=== PATIENT | female | born 1985 | race Caucasian/White ===

== ENCOUNTER 2018-12-06 17:43 | Emergency (ER) | payer MEDICAID ==
[~2018-12-06] VITALS: Ht 149.9 cm; Wt 71.8 kg
[~2018-12-06 17:43] MED LIST: NO HOME MEDS; OMEP20CA4 PO; ONDA4TAB6 PO; PROC-8 PO; SACC250C PO
[2018-12-06] MEDS ORDERED: LIDOcaine 1% w/epiNEPHrine 1:200,000 30ml vial IM ONE (19:20)
[2018-12-06] MEDS ORDERED: acetaminophen 325mg tablet PO ONE (19:20)
[2018-12-06] MEDS ORDERED: ibuprofen tablet 400 MG TABLET PO ONE (19:20)
[2018-12-06] MEDS ORDERED: ACET-2119 PO (19:26)
[2018-12-06] MEDS ORDERED: IBUP-1984 PO (19:26)
[2018-12-06] MEDS ORDERED: SULF1TAB49 PO (19:26)
[2018-12-06 20:15] VITALS: BP 132/84
== END 2018-12-06 20:17 | disposition home or self-care (01) ==
LOC: ER 17:44
DX: L03.011 Cellulitis of right finger (principal); Z56.0 Unemployment, unspecified; Z88.0 Allergy status to penicillin; Z79.2 Long term (current) use of antibiotics; Z79.899 Other long term (current) drug therapy
CPT/HCPCS: 10060; 99283; J3490

== ENCOUNTER 2018-12-24 15:48 | Emergency (ER) | payer MEDICAID ==
[~2018-12-24] VITALS: Ht 149.9 cm; Wt 68.0 kg
[~2018-12-24 15:48] MED LIST changes: +ACET-2119 PO; +SULF1TAB49 PO
[2018-12-24 16:00] VITALS: BP 125/89
[2018-12-24] MEDS ORDERED: HYDR-4383 PO (16:56)
== END 2018-12-24 17:19 | disposition home or self-care (01) ==
LOC: ER 15:49
DX: L03.011 Cellulitis of right finger (principal); Z56.0 Unemployment, unspecified; Z88.0 Allergy status to penicillin
CPT/HCPCS: 10060; 99283

== ENCOUNTER 2018-12-25 18:01 | Emergency (ER) | payer MEDICAID ==
[~2018-12-25] VITALS: Ht 149.9 cm; Wt 68.1 kg
[~2018-12-25 18:01] MED LIST changes: +HYDR-4383 PO
[2018-12-25 18:12] VITALS: BP 105/65
== END 2018-12-25 18:17 | disposition home or self-care (01) ==
LOC: ER 18:01
DX: L03.011 Cellulitis of right finger (principal); Z56.0 Unemployment, unspecified; Z88.0 Allergy status to penicillin
CPT/HCPCS: 99281

== ENCOUNTER 2019-06-22 16:35 | Inpatient (IN) | payer MEDICAID ==
[~2019-06-22] VITALS: Ht 149.9 cm; Wt 52.4 kg
[~2019-06-22 16:35] MED LIST changes: -ACET-2119 PO; -SULF1TAB49 PO
[2019-06-22 17:27] LABS: CLARITY,URINE CLEAR (Clear); COLOR,URINE STRAW (Yellow); GLUCOSE, URINE >=1000 mg/dl (Neg); KETONES,URINE 40 mg/dl (Neg); LEUKOCYTE ESTERASE ,URINE NEGATIVE (Neg); NITRITES, URINE NEGATIVE (Neg); OCCULT BLOOD,URINE NEGATIVE (Neg); PH,URINE 5.5 (4.8-8.0); PROTEIN,URINE NEGATIVE (Neg); UROBILINOGEN,URINE 0.2 E.U/dL (0.2-1.0)
[2019-06-22 17:28] LABS: UA COLLECTION TYPE CLN CATCH MIDSTREAM
[2019-06-22 17:31] LABS: BASOPHILS # (AUTO) 0.1 X10'3 (0-0.2); BASOPHILS % (AUTO) 1.1 % (0-1); EOSINOPHILS # (AUTO) 0.2 X10'3 (0-0.9); EOSINOPHILS % (AUTO) 2.9 % (0-6); HEMATOCRIT 42.9 % (35.0-45.0); HEMOGLOBIN 14.5 g/dl (12.0-16.0); LYMPHOCYTES % (AUTO) 28.2 % (21-51); MEAN CORPUSCULAR HEMOGLOBIN 33.8 PG (27.0-31.0); MEAN CORPUSCULAR HGB CONC 33.8 g/dL (33.0-36.5); MEAN PLATELET VOLUME 8.4 FL (7.4-10.4); MONOCYTES # (AUTO) 0.7 X10'3 (0-0.9); MONOCYTES % (AUTO) 9.5 % (2-12); NEUTROPHILS # (AUTO) 4.2 X10'3 (1.8-7.7); NEUTROPHILS % (AUTO) 58.3 % (42-75); PLATELET COUNT 251 X10'3 (140-440); RED BLOOD COUNT 4.29 X10'6 (4.20-5.60); RED CELL DISTRIBUTION WIDTH 13.5 % (11.5-14.5); WHITE BLOOD COUNT 7.2 X10'3 (4.5-11.0)
[2019-06-22 17:31] LABS: URINE HCG NEGATIVE (NEG)
[2019-06-22 17:39] LABS: SQUAMOUS EPITHELIAL CELL,UR FEW /LPF (FEW)
[2019-06-22 17:42] LABS: ALANINE AMINOTRANSFERASE 31 U/L (12-78); ALBUMIN 3.6 G/DL (3.4-5.0); ALBUMIN/GLOBULIN RATIO 1.1 (1.1-1.5); ALKALINE PHOSPHATASE 95 IU/L (46-116); ANION GAP 12 (8-16); ASPARTATE AMINO TRANSFERASE 14 U/L (10-37); BILIRUBIN,TOTAL 0.8 MG/DL (0.1-1.0); BLOOD UREA NITROGEN 9 MG/DL (7-18); CALCIUM 8.3 MG/DL (8.5-10.1); CHLORIDE 92 MMOL/L (99-107); CREATININE 0.82 MG/DL (0.40-0.90); LIPASE 244 U/L (73-393); POTASSIUM 3.9 MMOL/L (3.5-5.1); SODIUM 128 MMOL/L (135-145); TOTAL CARBON DIOXIDE 24.3 MMOL/L (24-32); eGFR 79 ML/MIN
[2019-06-22 17:43] LABS: RBC,URINE 0-2 /HPF (0-2); WBC,URINE 0-4 /HPF (0-4)
[2019-06-22 17:46] LABS: YEAST FEW /HPF (NEGATIVE)
[2019-06-22 17:47] LABS: BACTERIA,URINE NONE SEEN /HPF (Neg)
[2019-06-22 17:59] LABS: GLUCOSE 783 MG/DL (70-104)
[2019-06-22] MEDS ORDERED: normal saline 1000ML IV soln IVB ONE (18:05)
[2019-06-22] MEDS ORDERED: insulin regular, human 10 units/0.1 ml syringe SQ ONE (18:05)
[2019-06-22] MEDS ORDERED: insulin regular, human 10 units/0.1 ml syringe IV ONE (18:05)
[2019-06-22] MEDS ORDERED: mag hydrox/Alum hydrox/simeth 30ml oral suspension PO PRN (19:45)
[2019-06-22] MEDS ORDERED: acetaminophen 325mg tablet PO PRN (19:45)
[2019-06-22] MEDS ORDERED: ondansetron/PF 4mg/2ml inj IV PRN (19:45)
[2019-06-22] MEDS ORDERED: magnesium hydroxide 30ml (MOM) UD suspension PO PRN (19:45)
[2019-06-22 20:40] VITALS: BP 105/72
[2019-06-22] MEDS ORDERED: insulin glargine (Lantus) pen - multi-dose SQ ONE (21:00)
[2019-06-22] MEDS ORDERED: MESSAGE TO PHARMACY PO ONE (21:05)
[2019-06-22] MEDS ORDERED: dextrose ORAL solution 15 GM/59 ML bottle PO PRN ×2 (21:05)
[2019-06-22] MEDS ORDERED: dextrose 50%-water 50ml dispensing syringe IV PRN ×2 (21:05)
[2019-06-22] MEDS ORDERED: glucagon, human recombinant 1mg kit SUBCUT PRN (21:05)
[2019-06-22] MEDS ORDERED: insulin Lispro (HumaLOG) vial - multi-dose SQ SCH (21:05)
[2019-06-22] MEDS: normal saline 1000ml 1,000 ML IV SCH (23:12)
[2019-06-23 05:14] LABS: BASOPHILS # (AUTO) 0.1 X10'3 (0-0.2); BASOPHILS % (AUTO) 1.1 % (0-1); EOSINOPHILS # (AUTO) 0.5 X10'3 (0-0.9); EOSINOPHILS % (AUTO) 6.1 % (0-6); HEMATOCRIT 42.6 % (35.0-45.0); HEMOGLOBIN 14.9 g/dl (12.0-16.0); LYMPHOCYTES # (AUTO) 2.5 X10'3 (1.1-4.8); LYMPHOCYTES % (AUTO) 32.9 % (21-51); MEAN CORPUSCULAR HEMOGLOBIN 34.2 PG (27.0-31.0); MEAN CORPUSCULAR VOLUME 97.8 FL (78-98); MONOCYTES # (AUTO) 0.6 X10'3 (0-0.9); MONOCYTES % (AUTO) 8.1 % (2-12); NEUTROPHILS # (AUTO) 3.9 X10'3 (1.8-7.7); NEUTROPHILS % (AUTO) 51.8 % (42-75); PLATELET COUNT 260 X10'3 (140-440); RED BLOOD COUNT 4.35 X10'6 (4.20-5.60); RED CELL DISTRIBUTION WIDTH 13.6 % (11.5-14.5); WHITE BLOOD COUNT 7.6 X10'3 (4.5-11.0)
[2019-06-23 05:35] LABS: ALANINE AMINOTRANSFERASE 22 U/L (12-78); ALBUMIN 3.1 G/DL (3.4-5.0); ALKALINE PHOSPHATASE 66 IU/L (46-116); ANION GAP 7 (8-16); ASPARTATE AMINO TRANSFERASE 12 U/L (10-37); BILIRUBIN,TOTAL 0.3 MG/DL (0.1-1.0); BLOOD UREA NITROGEN 11 MG/DL (7-18); CHLORIDE 106 MMOL/L (99-107); CREATININE 0.44 MG/DL (0.40-0.90); GLUCOSE 217 MG/DL (70-104); POTASSIUM 3.6 MMOL/L (3.5-5.1); SODIUM 139 MMOL/L (135-145); TOTAL PROTEIN 6.1 G/DL (6.4-8.2); eGFR > 90 ML/MIN
[2019-06-23] MEDS: normal saline 1000ml 1,000 ML IV SCH (05:42)
--- NOTE | 2019-06-23 06:29 | NUR ---
Problems reprioritized. Patient report given, questions answered & plan of care reviewed with Reese RN.
--- NOTE | 2019-06-23 06:38 | NUR ---
Patient in room [facility]. I have received report from Oli ZARATE and had the opportunity to ask questions and assume patient care.
[2019-06-23 07:32] VITALS: BP 106/79
--- NOTE | 2019-06-23 08:30 | NUR ---
Patient left AMA this morning before medication pass, and never was able to do an assessment
[2019-06-23] MEDS ORDERED: insulin glargine (Lantus) pen - multi-dose SQ SCH (21:00)
== END 2019-06-23 08:40 | disposition left against medical advice (07) | DRG 420 ==
LOC: ER 16:36 → SUR 3N 20:38
PROVIDERS: ADMIT Internal Medicine; ATTEND Family Medicine
DX: E10.65 Type 1 diabetes mellitus with hyperglycemia (principal); F17.210 Nicotine dependence, cigarettes, uncomplicated; F32.9 Major depressive disorder, single episode, unspecified; Z83.3 Family history of diabetes mellitus; Z88.0 Allergy status to penicillin; Z72.89 Other problems related to lifestyle
CPT/HCPCS: 36415; 80053; 81001; 81025; 82948; 83525; 83690; 84681; 85025; 85610; 87081; 96361; 96372; 96374; 99285; G0378; J1815; J7030

== ENCOUNTER 2019-07-05 16:15 | Emergency (ER) | payer MEDICAID ==
[~2019-07-05] VITALS: Ht 124.5 cm; Wt 54.5 kg
[~2019-07-05 16:15] MED LIST changes: -HYDR-4383 PO; -OMEP20CA4 PO; -ONDA4TAB6 PO; -PROC-8 PO; -SACC250C PO
[2019-07-05 16:21] VITALS: BP 99/57
--- NOTE | 2019-07-05 17:10 | NUR ---
PATIENT STATES SHE WAS INPATIENT RECENTLY AND INFORMED THAT MRSA SCREEN WAS POSITIVE. STATES SHE WAS ADVISED TO COME IN FOR TREATMENT.
== END 2019-07-05 18:12 | disposition home or self-care (01) ==
LOC: ER 16:15
DX: Z11.2 Encounter for screening for other bacterial diseases (principal); E11.9 Type 2 diabetes mellitus without complications; F17.200 Nicotine dependence, unspecified, uncomplicated; Z56.0 Unemployment, unspecified; Z88.0 Allergy status to penicillin
CPT/HCPCS: 99281

== ENCOUNTER 2019-09-18 09:15 | Emergency (ER) | payer MEDICAID ==
[~2019-09-18] VITALS: Ht 149.9 cm; Wt 56.4 kg
[2019-09-18 09:16] VITALS: BP 133/86
== END 2019-09-18 11:17 | disposition left against medical advice (07) ==
LOC: ER 09:16
DX: Z00.8 Encounter for other general examination (principal); Z53.21 Procedure and treatment not carried out due to patient leaving prior to being seen by health care provider

== ENCOUNTER 2020-01-23 15:05 | Emergency (ER) | payer MEDICAID ==
[~2020-01-23] VITALS: Ht 175.3 cm; Wt 60.5 kg
[2020-01-23] MEDS ORDERED: ondansetron/PF 4mg/2ml inj IV ONE (16:10)
[2020-01-23] MEDS ORDERED: normal saline 1000ML IV soln IVB ONE (16:10)
[2020-01-23] MEDS ORDERED: proCHLORperazine 10 MG/2 ml inj IV ONE (16:10)
[2020-01-23 16:30] LABS: BASOPHILS % (AUTO) 0.1 % (0-1); EOSINOPHILS % (AUTO) 0.1 % (0-6); HEMATOCRIT 39.4 % (35.0-45.0); HEMOGLOBIN 13.4 g/dl (12.0-16.0); LYMPHOCYTES # (AUTO) 0.2 X10'3 (1.1-4.8); LYMPHOCYTES % (AUTO) 2.5 % (21-51); MEAN CORPUSCULAR HEMOGLOBIN 32.4 PG (27.0-31.0); MEAN CORPUSCULAR VOLUME 95.3 FL (78-98); MEAN PLATELET VOLUME 8.5 FL (7.4-10.4); MONOCYTES # (AUTO) 0.1 X10'3 (0-0.9); MONOCYTES % (AUTO) 1.2 % (2-12); NEUTROPHILS # (AUTO) 5.8 X10'3 (1.8-7.7); NEUTROPHILS % (AUTO) 96.1 % (42-75); PLATELET COUNT 172 X10'3 (140-440); RED BLOOD COUNT 4.14 X10'6 (4.20-5.60); RED CELL DISTRIBUTION WIDTH 13.7 % (11.5-14.5)
[2020-01-23 16:44] LABS: ALANINE AMINOTRANSFERASE 16 U/L (12-78); ALBUMIN/GLOBULIN RATIO 0.8 (1.1-1.5); ALKALINE PHOSPHATASE 90 IU/L (46-116); ANION GAP 14 (8-16); ASPARTATE AMINO TRANSFERASE 16 U/L (10-37); BILIRUBIN,TOTAL 0.7 MG/DL (0.1-1.0); BLOOD UREA NITROGEN 16 MG/DL (7-18); BUN/CREATININE RATIO 19.8 (6.6-38.0); CALCIUM 8.5 MG/DL (8.5-10.1); CHLORIDE 101 MMOL/L (99-107); CREATININE 0.81 MG/DL (0.40-0.90); GLUCOSE 212 MG/DL (70-104); LIPASE 100 U/L (73-393); POTASSIUM 3.4 MMOL/L (3.5-5.1); SODIUM 138 MMOL/L (135-145); TOTAL CARBON DIOXIDE 22.8 MMOL/L (24-32); TOTAL PROTEIN 6.9 G/DL (6.4-8.2); eGFR 80 ML/MIN
[2020-01-23] MEDS ORDERED: potassium Cl 20 mEq SR tablet PO ONE (16:50)
[2020-01-23] MEDS ORDERED: ONDA4TAB6 PO (17:06)
[2020-01-23] MEDS ORDERED: normal saline 1000ml 1,000 ML IV ONE ×2 (18:10→18:45)
[2020-01-23 19:36] VITALS: BP 99/51
== END 2020-01-23 19:41 | disposition home or self-care (01) ==
LOC: ER 15:06
DX: A08.4 Viral intestinal infection, unspecified (principal); R11.2 Nausea with vomiting, unspecified; R19.7 Diarrhea, unspecified; E10.9 Type 1 diabetes mellitus without complications; F32.9 Major depressive disorder, single episode, unspecified; F12.90 Cannabis use, unspecified, uncomplicated; Z56.0 Unemployment, unspecified; Z88.0 Allergy status to penicillin; Z79.899 Other long term (current) drug therapy
CPT/HCPCS: 36415; 80053; 83690; 85025; 96361; 96374; 96375; 99284; J0780; J2405; J7030

== ENCOUNTER 2020-01-26 18:43 | Emergency (ER) | payer MEDICAID ==
[~2020-01-26] VITALS: Ht 149.9 cm; Wt 51.1 kg
[~2020-01-26 18:43] MED LIST changes: +ONDA4TAB6 PO
[2020-01-26] MEDS ORDERED: normal saline 1000ML IV soln IVB ONE (19:00)
[2020-01-26] MEDS ORDERED: ondansetron/PF 4mg/2ml inj IV ONE (19:00)
[2020-01-26 19:20] LABS: BASOPHILS % (AUTO) 0.4 % (0-1); EOSINOPHILS # (AUTO) 0.1 X10'3 (0-0.9); EOSINOPHILS % (AUTO) 0.8 % (0-6); HEMATOCRIT 40.3 % (35.0-45.0); HEMOGLOBIN 13.5 g/dl (12.0-16.0); LYMPHOCYTES # (AUTO) 1.3 X10'3 (1.1-4.8); LYMPHOCYTES % (AUTO) 10.7 % (21-51); MEAN CORPUSCULAR HEMOGLOBIN 32.7 PG (27.0-31.0); MEAN CORPUSCULAR HGB CONC 33.4 g/dL (33.0-36.5); MEAN CORPUSCULAR VOLUME 97.8 FL (78-98); MEAN PLATELET VOLUME 8.5 FL (7.4-10.4); MONOCYTES # (AUTO) 0.7 X10'3 (0-0.9); MONOCYTES % (AUTO) 5.5 % (2-12); NEUTROPHILS # (AUTO) 9.9 X10'3 (1.8-7.7); NEUTROPHILS % (AUTO) 82.6 % (42-75); PLATELET COUNT 198 X10'3 (140-440); RED BLOOD COUNT 4.13 X10'6 (4.20-5.60); RED CELL DISTRIBUTION WIDTH 14.1 % (11.5-14.5); WHITE BLOOD COUNT 11.9 X10'3 (4.5-11.0)
[2020-01-26 19:32] LABS: COLOR,URINE YELLOW (Yellow); GLUCOSE, URINE 100 mg/dl (Neg); KETONES,URINE >=80 mg/dl (Neg); LEUKOCYTE ESTERASE ,URINE NEGATIVE (Neg); NITRITES, URINE NEGATIVE (Neg); OCCULT BLOOD,URINE TRACE-INTACT (Neg); PH,URINE 5.5 (4.8-8.0); PROTEIN,URINE 30 mg/dl (Neg); URINE HCG POSITIVE (NEG); UROBILINOGEN,URINE 0.2 E.U/dL (0.2-1.0)
[2020-01-26] MEDS ORDERED: acetaminophen 325mg tablet PO ONE (19:35)
[2020-01-26 19:38] LABS: ALANINE AMINOTRANSFERASE 14 U/L (12-78); ALBUMIN 2.8 G/DL (3.4-5.0); ALBUMIN/GLOBULIN RATIO 0.6 (1.1-1.5); ALKALINE PHOSPHATASE 66 IU/L (46-116); ANION GAP 19 (8-16); ASPARTATE AMINO TRANSFERASE 16 U/L (10-37); BILIRUBIN,TOTAL 0.5 MG/DL (0.1-1.0); BLOOD UREA NITROGEN 10 MG/DL (7-18); BUN/CREATININE RATIO 13.5 (6.6-38.0); CALCIUM 8.7 MG/DL (8.5-10.1); CHLORIDE 101 MMOL/L (99-107); CREATININE 0.74 MG/DL (0.40-0.90); GLUCOSE 210 MG/DL (70-104); LIPASE 244 U/L (73-393); POTASSIUM 4.3 MMOL/L (3.5-5.1); SODIUM 131 MMOL/L (135-145); TOTAL PROTEIN 7.6 G/DL (6.4-8.2); eGFR 89 ML/MIN
[2020-01-26 19:42] LABS: CLARITY,URINE SLIGHTLY CLOUDY (Clear); UA COLLECTION TYPE CLN CATCH MIDSTREAM
[2020-01-26 19:42] LABS: TOTAL CARBON DIOXIDE 11.1 MMOL/L (24-32)
[2020-01-26 19:44] LABS: BACTERIA,URINE FEW /HPF (Neg); RBC,URINE 0-2 /HPF (0-2); SQUAMOUS EPITHELIAL CELL,UR MODERATE /LPF (FEW); WBC,URINE 0-4 /HPF (0-4)
[2020-01-26] MEDS ORDERED: LIDOcaine Viscous 15ml cup MM STA (19:49)
[2020-01-26 19:53] LABS: URINE AMPHETAMINE SCREEN NEGATIVE (Neg); URINE BARBITUATE SCREEN NEGATIVE (Neg); URINE BENZODIAZEPINES SCREEN NEGATIVE (Neg); URINE CANNABINOID SCREEN POSITIVE (Neg); URINE COCAINE SCREEN NEGATIVE (Neg); URINE METHADONE SCREEN NEGATIVE (Neg); URINE OPIATE SCREEN NEGATIVE (Neg); URINE PHENCYCLIDINE SCREEN NEGATIVE (Neg)
[2020-01-26] MEDS ORDERED: mag hydrox/Alum hydrox/simeth 30ml oral suspension PO ONE ×2 (20:00→23:20)
[2020-01-26] MEDS ORDERED: normal saline 1000ML IV soln IV ONE (20:00)
[2020-01-26] MEDS ORDERED: diphenhydrAMINE 50 mg/ml inj IV ONE (20:15)
[2020-01-26] MEDS ORDERED: metoclopramide 5 mg/ml inj IV ONE (20:15)
[2020-01-26 20:56] LABS: ABG BASE EXCESS -20.3 mmol/L (-2.0-3.0); ABG OXYGEN SATURATION 97.6 % (95-98); ABG PCO2 (T) 16.7 mmHg (35.0-45.0); ABG PH (T) 7.176 (7.350-7.450); ABG PO2 (T) 119.8 mmHg (83-108); ALLEN'S TEST POSITIVE; FCOHb 1.2 % (0.5-1.5); FMetHb 0.2 % (0.3-1.12); FO2Hb 96.2 % (94-100); PATIENT TEMPERATURE 36.8; TOTAL HEMOGLOBIN 12.2 G/dl (12.0-16.0)
--- NOTE | 2020-01-26 22:27 | NUR ---
MD Julio Cesar at bedside performing ultrasonography at this time.
--- NOTE | 2020-01-26 22:30 | NUR ---
Per MD, ultrasonography is promising. HR at 130 with expected movements/ activity.
[2020-01-26] MEDS ORDERED: Insulin Reg/NS 100units/100mL 100 ML IV SCH (22:32)
[2020-01-26] MEDS ORDERED: potassium Cl 20 mEq SR tablet PO PRN ×2 (22:35)
[2020-01-26] MEDS ORDERED: potassium CL 10mEq/100ml bag 100 ML IV PRN ×2 (22:35)
[2020-01-26] MEDS: potassium CL 20mEq in D5-1/2NS 1,000 ML IV PRN (23:08)
--- NOTE | 2020-01-26 23:53 | NUR ---
VU URENA consulted high worker @ [facility] via phone. Pt. to be monitored for now.
[2020-01-27 00:01] LABS: ALBUMIN 2.5 G/DL (3.4-5.0); ANION GAP 20 (8-16); BLOOD UREA NITROGEN 9 MG/DL (7-18); BUN/CREATININE RATIO 13.6 (6.6-38.0); CALCIUM 7.6 MG/DL (8.5-10.1); CHLORIDE 105 MMOL/L (99-107); CREATININE 0.66 MG/DL (0.40-0.90); GLUCOSE 212 MG/DL (70-104); PHOSPHORUS 1.9 MG/DL (2.3-4.5); POTASSIUM 4.4 MMOL/L (3.5-5.1); SODIUM 134 MMOL/L (135-145); eGFR > 90 ML/MIN
[2020-01-27 00:04] LABS: TOTAL CARBON DIOXIDE 8.9 MMOL/L (24-32)
[2020-01-27] MEDS ORDERED: acetaminophen 325mg tablet PO ONE ×2 (03:25→08:20)
[2020-01-27 04:25] LABS: ALBUMIN 2.2 G/DL (3.4-5.0); ANION GAP 13 (8-16); BLOOD UREA NITROGEN 7 MG/DL (7-18); BUN/CREATININE RATIO 10.4 (6.6-38.0); CALCIUM 7.2 MG/DL (8.5-10.1); CHLORIDE 108 MMOL/L (99-107); CREATININE 0.67 MG/DL (0.40-0.90); GLUCOSE 194 MG/DL (70-104); POTASSIUM 3.9 MMOL/L (3.5-5.1); SODIUM 135 MMOL/L (135-145); eGFR > 90 ML/MIN
[2020-01-27 04:28] LABS: PHOSPHORUS 1.1 MG/DL (2.3-4.5); TOTAL CARBON DIOXIDE 14.1 MMOL/L (24-32)
[2020-01-27] MEDS ORDERED: Neutra Phos packet PO PRN (04:35)
[2020-01-27] MEDS ORDERED: sodium phosphate inj. 30 MMOL in dextrose 5%-water 250 ML IV PRN (04:35)
[2020-01-27] MEDS ORDERED: sodium phosphate inj. 15 MMOL in dextrose 5%-water 250 ML IV PRN (04:35)
[2020-01-27] MEDS: potassium CL 20mEq in D5-1/2NS 1,000 ML IV PRN (05:25)
[2020-01-27] MEDS ORDERED: mag hydrox/Alum hydrox/simeth 30ml oral suspension PO ONE (05:40)
[2020-01-27 07:17] VITALS: BP 101/61
[2020-01-27] MEDS ORDERED: K and/or MAG REPLACEMENT MC SCH (08:00)
[2020-01-27 09:02] LABS: ALANINE AMINOTRANSFERASE 13 U/L (12-78); ALBUMIN 2.3 G/DL (3.4-5.0); ALBUMIN/GLOBULIN RATIO 0.6 (1.1-1.5); ALKALINE PHOSPHATASE 59 IU/L (46-116); ANION GAP 10 (8-16); ASPARTATE AMINO TRANSFERASE 15 U/L (10-37); BILIRUBIN,TOTAL 0.3 MG/DL (0.1-1.0); BLOOD UREA NITROGEN 7 MG/DL (7-18); BUN/CREATININE RATIO 11.1 (6.6-38.0); CALCIUM 7.5 MG/DL (8.5-10.1); CHLORIDE 107 MMOL/L (99-107); CREATININE 0.63 MG/DL (0.40-0.90); GLUCOSE 183 MG/DL (70-104); PHOSPHORUS 2.1 MG/DL (2.3-4.5); POTASSIUM 3.7 MMOL/L (3.5-5.1); SODIUM 135 MMOL/L (135-145); TOTAL CARBON DIOXIDE 17.7 MMOL/L (24-32); TOTAL PROTEIN 6.1 G/DL (6.4-8.2); eGFR > 90 ML/MIN
[2020-01-27] MEDS ORDERED: FAMO-128 PO (09:29)
[2020-01-27] MEDS ORDERED: ONDA4TAB6 PO (09:29)
[2020-01-27] MEDS ORDERED: PROM25SU46 RC (09:29)
[2020-01-27] MEDS ORDERED: famotidine/PF 10 mg/ml inj IV ONE (09:30)
[2020-01-27] MEDS ORDERED: ondansetron/PF 4mg/2ml inj IV ONE (09:30)
== END 2020-01-27 09:47 | disposition home or self-care (01) ==
LOC: ER 18:43
DX: O24.419 Gestational diabetes mellitus in pregnancy, unspecified control (principal); O21.8 Other vomiting complicating pregnancy; O26.892 Other specified pregnancy related conditions, second trimester; E86.0 Dehydration; R19.7 Diarrhea, unspecified; F12.90 Cannabis use, unspecified, uncomplicated; F32.9 Major depressive disorder, single episode, unspecified; Z3A.24 24 weeks gestation of pregnancy; Z56.0 Unemployment, unspecified; Z88.0 Allergy status to penicillin
CPT/HCPCS: 36415; 36600; 80048; 80053; 80305; 81001; 81025; 82803; 82948; 83605; 83690; 84100; 85018; 85025; 96361; 96365; 96366; 96375; 96376; 99285; J1200; J2405; J2765; J3480; J3490; J7030; J7060; 99284

== ENCOUNTER 2020-06-19 08:34 | Emergency (ER) | payer MEDICAID ==
[~2020-06-19] VITALS: Ht 149.9 cm; Wt 47.7 kg
[~2020-06-19 08:34] MED LIST changes: +FAMO-128 PO; +PROM25SU46 RC
[2020-06-19 09:08] LABS: CLARITY,URINE SLIGHTLY CLOUDY (Clear); COLOR,URINE STRAW (Yellow); GLUCOSE, URINE >=1000 mg/dl (Neg); KETONES,URINE >=80 mg/dl (Neg); LEUKOCYTE ESTERASE ,URINE NEGATIVE (Neg); NITRITES, URINE NEGATIVE (Neg); OCCULT BLOOD,URINE LARGE (Neg); PH,URINE 5.5 (4.8-8.0); PROTEIN,URINE NEGATIVE (Neg); UA COLLECTION TYPE CLN CATCH MIDSTREAM; URINE HCG NEGATIVE (NEG); UROBILINOGEN,URINE 0.2 E.U/dL (0.2-1.0)
[2020-06-19 09:09] LABS: BASOPHILS % (AUTO) 0.3 % (0-1); EOSINOPHILS % (AUTO) 0.1 % (0-6); HEMATOCRIT 47.2 % (35.0-45.0); LYMPHOCYTES # (AUTO) 1.7 X10'3 (1.1-4.8); LYMPHOCYTES % (AUTO) 13.5 % (21-51); MEAN CORPUSCULAR HEMOGLOBIN 32.1 PG (27.0-31.0); MEAN CORPUSCULAR VOLUME 94.4 FL (78-98); MEAN PLATELET VOLUME 8.1 FL (7.4-10.4); MONOCYTES # (AUTO) 0.6 X10'3 (0-0.9); MONOCYTES % (AUTO) 5.1 % (2-12); NEUTROPHILS # (AUTO) 10.1 X10'3 (1.8-7.7); PLATELET COUNT 338 X10'3 (140-440); WHITE BLOOD COUNT 12.5 X10'3 (4.5-11.0)
[2020-06-19 09:15] LABS: BACTERIA,URINE FEW /HPF (Neg); RBC,URINE 0-2 /HPF (0-2); SQUAMOUS EPITHELIAL CELL,UR MODERATE /LPF (FEW); WBC,URINE 0-4 /HPF (0-4)
[2020-06-19] MEDS ORDERED: normal saline 1000ml 1,000 ML IV ONE ×3 (09:15→11:35)
[2020-06-19 09:22] LABS: ALANINE AMINOTRANSFERASE 30 U/L (12-78); ALBUMIN 4.2 G/DL (3.4-5.0); ALBUMIN/GLOBULIN RATIO 0.9 (1.1-1.5); ALKALINE PHOSPHATASE 84 IU/L (46-116); ANION GAP 17 (8-16); ASPARTATE AMINO TRANSFERASE 28 U/L (10-37); BILIRUBIN,TOTAL 1.9 MG/DL (0.1-1.0); BLOOD UREA NITROGEN 26 MG/DL (7-18); BUN/CREATININE RATIO 20.8 (6.6-38.0); CALCIUM 8.7 MG/DL (8.5-10.1); CHLORIDE 87 MMOL/L (99-107); CREATININE 1.25 MG/DL (0.40-0.90); LIPASE 183 U/L (73-393); POTASSIUM 3.7 MMOL/L (3.5-5.1); SODIUM 129 MMOL/L (135-145); TOTAL CARBON DIOXIDE 24.6 MMOL/L (24-32); TOTAL PROTEIN 8.7 G/DL (6.4-8.2); eGFR 48 ML/MIN
[2020-06-19 09:27] LABS: GLUCOSE 524 MG/DL (70-104)
[2020-06-19] MEDS ORDERED: ondansetron/PF 4mg/2ml inj IV ONE ×2 (10:10→11:45)
--- NOTE | 2020-06-19 10:42 | NUR ---
PT C/O NAUSEA ,MEDICATED WITH 4 MG ZOFRAN PER MD ORDERS,PT SECOND BAG OF N.S INFUSING PER MD ORDERS,PRIMARY NURSE MARIO BUSY WITH OTHER PT.
[2020-06-19 12:09] LABS: URINE AMPHETAMINE SCREEN NEGATIVE (Neg); URINE BARBITUATE SCREEN NEGATIVE (Neg); URINE BENZODIAZEPINES SCREEN NEGATIVE (Neg); URINE CANNABINOID SCREEN POSITIVE (Neg); URINE COCAINE SCREEN NEGATIVE (Neg); URINE METHADONE SCREEN NEGATIVE (Neg); URINE OPIATE SCREEN NEGATIVE (Neg); URINE PHENCYCLIDINE SCREEN NEGATIVE (Neg)
[2020-06-19] MEDS ORDERED: PROM25TA14 PO (12:36)
[2020-06-19 12:59] VITALS: BP 139/90
== END 2020-06-19 12:58 | disposition home or self-care (01) ==
LOC: ER 08:35
DX: E11.65 Type 2 diabetes mellitus with hyperglycemia (principal); R11.2 Nausea with vomiting, unspecified; R10.84 Generalized abdominal pain; R50.9 Fever, unspecified; F32.9 Major depressive disorder, single episode, unspecified; F17.200 Nicotine dependence, unspecified, uncomplicated; F12.90 Cannabis use, unspecified, uncomplicated; Z72.89 Other problems related to lifestyle; Z56.0 Unemployment, unspecified; Z88.0 Allergy status to penicillin; Z79.899 Other long term (current) drug therapy
CPT/HCPCS: 36415; 76700; 80053; 80305; 81001; 81025; 82009; 82948; 83605; 83690; 85025; 93005; 96361; 96374; 96376; 99285; J2405; J7030

== ENCOUNTER 2020-06-25 15:05 | Emergency (ER) | payer MEDICAID ==
[~2020-06-25] VITALS: Ht 149.9 cm; Wt 53.0 kg
[~2020-06-25 15:05] MED LIST changes: +PROM25TA14 PO
[2020-06-25] MEDS ORDERED: normal saline 1000ML IV soln IVB ONE (15:50)
[2020-06-25 16:06] LABS: BASOPHILS % (AUTO) 0.5 % (0-1); EOSINOPHILS % (AUTO) 0.5 % (0-6); HEMOGLOBIN 16.2 g/dl (12.0-16.0); LYMPHOCYTES # (AUTO) 2.7 X10'3 (1.1-4.8); LYMPHOCYTES % (AUTO) 27.8 % (21-51); MEAN CORPUSCULAR HEMOGLOBIN 31.5 PG (27.0-31.0); MEAN CORPUSCULAR HGB CONC 33.6 g/dL (33.0-36.5); MEAN CORPUSCULAR VOLUME 93.7 FL (78-98); MEAN PLATELET VOLUME 8.1 FL (7.4-10.4); MONOCYTES # (AUTO) 0.5 X10'3 (0-0.9); MONOCYTES % (AUTO) 5.6 % (2-12); NEUTROPHILS # (AUTO) 6.3 X10'3 (1.8-7.7); NEUTROPHILS % (AUTO) 65.6 % (42-75); PLATELET COUNT 405 X10'3 (140-440); RED BLOOD COUNT 5.12 X10'6 (4.20-5.60); RED CELL DISTRIBUTION WIDTH 14.1 % (11.5-14.5); WHITE BLOOD COUNT 9.6 X10'3 (4.5-11.0)
[2020-06-25 16:22] LABS: ALANINE AMINOTRANSFERASE 29 U/L (12-78); ALBUMIN 4.2 G/DL (3.4-5.0); ALBUMIN/GLOBULIN RATIO 0.9 (1.1-1.5); ALKALINE PHOSPHATASE 84 IU/L (46-116); ANION GAP 27 (8-16); ASPARTATE AMINO TRANSFERASE 20 U/L (10-37); BILIRUBIN,TOTAL 1.2 MG/DL (0.1-1.0); BLOOD UREA NITROGEN 19 MG/DL (7-18); BUN/CREATININE RATIO 18.6 (6.6-38.0); CALCIUM 8.6 MG/DL (8.5-10.1); CHLORIDE 91 MMOL/L (99-107); CREATININE 1.02 MG/DL (0.40-0.90); GLUCOSE 375 MG/DL (70-104); LIPASE 263 U/L (73-393); POTASSIUM 4.2 MMOL/L (3.5-5.1); SODIUM 132 MMOL/L (135-145); TOTAL PROTEIN 8.7 G/DL (6.4-8.2); eGFR 61 ML/MIN
[2020-06-25 16:25] LABS: TOTAL CARBON DIOXIDE 14.3 MMOL/L (24-32)
[2020-06-25] MEDS ORDERED: proCHLORperazine 10 MG/2 ml inj IV ONE (16:40)
[2020-06-25] MEDS ORDERED: LORazepam 2 mg/ml vial IV ONE (16:40)
[2020-06-25 16:50] LABS: URINE HCG NEGATIVE (NEG)
[2020-06-25 16:52] LABS: COLOR,URINE YELLOW (Yellow); GLUCOSE, URINE 500 mg/dl (Neg); KETONES,URINE >=80 mg/dl (Neg); LEUKOCYTE ESTERASE ,URINE NEGATIVE (Neg); NITRITES, URINE NEGATIVE (Neg); OCCULT BLOOD,URINE NEGATIVE (Neg); PROTEIN,URINE TRACE mg/dl (Neg); UROBILINOGEN,URINE 0.2 E.U/dL (0.2-1.0)
[2020-06-25] MEDS ORDERED: PROC25SU31 RC (16:58)
[2020-06-25 17:10] LABS: CLARITY,URINE SLIGHTLY CLOUDY (Clear); UA COLLECTION TYPE CLN CATCH MIDSTREAM
[2020-06-25 17:11] LABS: BACTERIA,URINE NONE SEEN /HPF (Neg); HYALINE CASTS 0-3 /LPF (NEGATIVE); MUCUS STRANDS FEW /LPF (Neg); RBC,URINE NONE SEEN /HPF (0-2); SQUAMOUS EPITHELIAL CELL,UR MANY /LPF (FEW); WBC,URINE 0-4 /HPF (0-4)
[2020-06-25 18:24] VITALS: BP 99/69
== END 2020-06-25 18:20 | disposition home or self-care (01) ==
LOC: ER 15:06
DX: R11.15 Cyclical vomiting syndrome unrelated to migraine (principal); F12.188 Cannabis abuse with other cannabis-induced disorder; E86.0 Dehydration; R10.13 Epigastric pain; R11.2 Nausea with vomiting, unspecified; E11.9 Type 2 diabetes mellitus without complications; Z72.89 Other problems related to lifestyle; Z88.0 Allergy status to penicillin; Z79.899 Other long term (current) drug therapy
CPT/HCPCS: 36415; 80053; 81001; 81025; 82948; 83690; 85025; 96361; 96374; 96375; 99284; J0780; J2060; J7030

== ENCOUNTER 2020-09-14 00:29 | Emergency (ER) | payer MEDICAID ==
[~2020-09-14] VITALS: Ht 149.9 cm; Wt 52.0 kg
[~2020-09-14 00:29] MED LIST changes: -PROM25SU46 RC; +PROM25SU9 RC
[2020-09-14 00:32] VITALS: BP 128/86
[2020-09-14] MEDS ORDERED: acetaminophen 325mg tablet PO ONE (01:40)
[2020-09-14 02:15] LABS: ALANINE AMINOTRANSFERASE 31 U/L (12-78); ALBUMIN 3.4 G/DL (3.4-5.0); ALKALINE PHOSPHATASE 85 IU/L (46-116); ANION GAP 6 (8-16); ASPARTATE AMINO TRANSFERASE 19 U/L (10-37); BILIRUBIN,TOTAL 0.3 MG/DL (0.1-1.0); BLOOD UREA NITROGEN 20 MG/DL (7-18); CALCIUM 9.2 MG/DL (8.5-10.1); CHLORIDE 98 MMOL/L (99-107); GLUCOSE 152 MG/DL (70-104); POTASSIUM 3.2 MMOL/L (3.5-5.1); SODIUM 131 MMOL/L (135-145); TOTAL CARBON DIOXIDE 26.6 MMOL/L (24-32); TOTAL PROTEIN 6.9 G/DL (6.4-8.2); eGFR 81 ML/MIN
[2020-09-14 02:21] LABS: BETA HCG,QUANTITATIVE 281 mIU/ml
[2020-09-14 02:24] LABS: BASOPHILS # (AUTO) 0.1 X10'3 (0-0.2); BASOPHILS % (AUTO) 0.7 % (0-1); EOSINOPHILS # (AUTO) 0.4 X10'3 (0-0.9); EOSINOPHILS % (AUTO) 3.4 % (0-6); HEMATOCRIT 43.8 % (35.0-45.0); HEMOGLOBIN 15.1 g/dl (12.0-16.0); LYMPHOCYTES # (AUTO) 3.9 X10'3 (1.1-4.8); LYMPHOCYTES % (AUTO) 33.9 % (21-51); MEAN CORPUSCULAR HEMOGLOBIN 31.7 PG (27.0-31.0); MEAN CORPUSCULAR HGB CONC 34.5 g/dL (33.0-36.5); MEAN CORPUSCULAR VOLUME 91.8 FL (78-98); MEAN PLATELET VOLUME 8.7 FL (7.4-10.4); MONOCYTES # (AUTO) 0.9 X10'3 (0-0.9); MONOCYTES % (AUTO) 7.7 % (2-12); NEUTROPHILS # (AUTO) 6.3 X10'3 (1.8-7.7); NEUTROPHILS % (AUTO) 54.3 % (42-75); PLATELET COUNT 281 X10'3 (140-440); RED BLOOD COUNT 4.77 X10'6 (4.20-5.60); RED CELL DISTRIBUTION WIDTH 12.5 % (11.5-14.5); WHITE BLOOD COUNT 11.5 X10'3 (4.5-11.0)
== END 2020-09-14 03:38 | disposition home or self-care (01) ==
LOC: ER 00:30
DX: O20.0 Threatened abortion (principal); R10.84 Generalized abdominal pain; N93.9 Abnormal uterine and vaginal bleeding, unspecified; R11.0 Nausea; E11.9 Type 2 diabetes mellitus without complications; F32.9 Major depressive disorder, single episode, unspecified; F12.90 Cannabis use, unspecified, uncomplicated; Z72.89 Other problems related to lifestyle; Z56.0 Unemployment, unspecified; Z88.0 Allergy status to penicillin; Z79.899 Other long term (current) drug therapy
CPT/HCPCS: 36415; 76801; 80053; 84702; 85025; 93976; 99284

== ENCOUNTER 2021-02-15 20:26 | Emergency (ER) | payer MEDICAID ==
[~2021-02-15] VITALS: Ht 149.9 cm; Wt 51.0 kg
[2021-02-15 21:32] LABS: URINE HCG NEGATIVE (NEG)
[2021-02-15 21:56] LABS: CLARITY,URINE CLEAR (Clear); COLOR,URINE YELLOW (Yellow); GLUCOSE, URINE 250 mg/dl (Neg); KETONES,URINE >=80 mg/dl (Neg); LEUKOCYTE ESTERASE ,URINE NEGATIVE (Neg); NITRITES, URINE NEGATIVE (Neg); OCCULT BLOOD,URINE TRACE-INTACT (Neg); PH,URINE 5.5 (4.8-8.0); PROTEIN,URINE 100 mg/dl (Neg); UROBILINOGEN,URINE 0.2 E.U/dL (0.2-1.0)
[2021-02-15 21:58] LABS: UA COLLECTION TYPE CLN CATCH MIDSTREAM
[2021-02-15] MEDS ORDERED: normal saline 1000ML IV soln IVB ONE ×2 (22:00→22:50)
[2021-02-15] MEDS ORDERED: famotidine/PF 10 mg/ml inj IV ONE (22:00)
[2021-02-15] MEDS ORDERED: pantoprazole 40 MG vial IV ONE (22:00)
[2021-02-15 22:09] LABS: BACTERIA,URINE FEW /HPF (Neg); MUCUS STRANDS MODERATE /LPF (Neg); RBC,URINE 0-2 /HPF (0-2); SQUAMOUS EPITHELIAL CELL,UR MODERATE /LPF (FEW); WBC,URINE 0-4 /HPF (0-4)
[2021-02-15 22:22] LABS: BASOPHILS % (AUTO) 0.2 % (0-1); EOSINOPHILS % (AUTO) 0.2 % (0-6); HEMATOCRIT 48.3 % (35.0-45.0); HEMOGLOBIN 16.1 g/dl (12.0-16.0); LYMPHOCYTES # (AUTO) 0.9 X10'3 (1.1-4.8); LYMPHOCYTES % (AUTO) 9.2 % (21-51); MEAN CORPUSCULAR HEMOGLOBIN 32.9 PG (27.0-31.0); MEAN CORPUSCULAR HGB CONC 33.3 g/dL (33.0-36.5); MEAN CORPUSCULAR VOLUME 98.6 FL (78-98); MEAN PLATELET VOLUME 8.3 FL (7.4-10.4); MONOCYTES # (AUTO) 0.2 X10'3 (0-0.9); MONOCYTES % (AUTO) 2.6 % (2-12); NEUTROPHILS # (AUTO) 8.2 X10'3 (1.8-7.7); NEUTROPHILS % (AUTO) 87.8 % (42-75); PLATELET COUNT 341 X10'3 (140-440); RED CELL DISTRIBUTION WIDTH 13.2 % (11.5-14.5); WHITE BLOOD COUNT 9.3 X10'3 (4.5-11.0)
[2021-02-15 22:34] LABS: ALANINE AMINOTRANSFERASE 43 U/L (12-78); ALBUMIN 4.4 G/DL (3.4-5.0); ALBUMIN/GLOBULIN RATIO 1.1 (1.1-1.5); ALKALINE PHOSPHATASE 90 IU/L (46-116); ANION GAP 23 (8-16); ASPARTATE AMINO TRANSFERASE 37 U/L (10-37); BILIRUBIN,TOTAL 0.7 MG/DL (0.1-1.0); BLOOD UREA NITROGEN 22 MG/DL (7-18); BUN/CREATININE RATIO 23.2 (6.6-38.0); CALCIUM 9.3 MG/DL (8.5-10.1); CHLORIDE 99 MMOL/L (99-107); CREATININE 0.95 MG/DL (0.40-0.90); GLUCOSE 348 MG/DL (70-104); LIPASE 58 U/L (73-393); POTASSIUM 3.9 MMOL/L (3.5-5.1); SODIUM 141 MMOL/L (135-145); TOTAL PROTEIN 8.4 G/DL (6.4-8.2); eGFR 66 ML/MIN
[2021-02-15 22:41] LABS: URINE AMPHETAMINE SCREEN NEGATIVE (Neg); URINE BARBITUATE SCREEN NEGATIVE (Neg); URINE BENZODIAZEPINES SCREEN NEGATIVE (Neg); URINE CANNABINOID SCREEN POSITIVE (Neg); URINE COCAINE SCREEN NEGATIVE (Neg); URINE METHADONE SCREEN NEGATIVE (Neg); URINE OPIATE SCREEN NEGATIVE (Neg); URINE PHENCYCLIDINE SCREEN NEGATIVE (Neg)
[2021-02-15] MEDS ORDERED: haloperidol lactate 5mg/ml inj IM ONE (22:50)
[2021-02-15 23:41] LABS: ABG BASE EXCESS -15.8 mmol/L (-2.0-2.0); ABG HCO3 10.1 mmol/L (22.0-26.0); ABG OXYGEN SATURATION 96.9 % (94-97); ABG PCO2 (T) 25.1 mmHg (32.0-45.0); ABG PO2 (T) 104.3 mmHg (75.0-100.0); ALLEN'S TEST POSITIVE; FCOHb 1.3 % (0.0-3.9); FMetHb 0.2 % (0.0-1.5); FO2Hb 95.4 % (94-97); PATIENT TEMPERATURE 36.9; RESPIRATORY RATE 16 b/min; TOTAL HEMOGLOBIN 14.7 G/dl (12.0-16.0)
[2021-02-15] MEDS ORDERED: potassium CL 20mEq in D5-1/2NS 1,000 ML IV PRN (23:45)
[2021-02-15] MEDS ORDERED: sodium phosphate inj. 30 MMOL in dextrose 5%-water 250 ML IV PRN (23:45)
[2021-02-15] MEDS ORDERED: sodium phosphate inj. 15 MMOL in dextrose 5%-water 250 ML IV PRN (23:45)
[2021-02-15] MEDS ORDERED: potassium Cl 40MEQ/1/2NS 520ml 520 ML IV PRN ×2 (23:45)
[2021-02-15] MEDS ORDERED: sodium bicarbonate (8.4%) inj. 100 MEQ in dextrose 5% water 500ml 500 ML IV PRN (23:45)
[2021-02-15] MEDS ORDERED: potassium Cl 20 mEq SR tablet PO PRN ×2 (23:45)
[2021-02-15] MEDS ORDERED: insulin regular, human U-100 3ml vial - multi-dose IV PRN (23:45)
[2021-02-15] MEDS ORDERED: Insulin Reg/NS 100units/100mL 100 ML IV SCH (23:45)
[2021-02-15] MEDS ORDERED: sodium bicarbonate (8.4%) inj. 50 MEQ in dextrose 5% water 500ml 250 ML IV PRN (23:45)
[2021-02-15] MEDS ORDERED: Neutra Phos packet PO PRN (23:45)
[2021-02-15] MEDS ORDERED: DEXTROSE 5% IV PRN (23:52)
[2021-02-15] MEDS ORDERED: SODIUM BICARBONATE IV PRN (23:52)
[2021-02-15] MEDS ORDERED: WATER IV PRN (23:52)
[2021-02-15 23:57] LABS: PHOSPHORUS 4.9 MG/DL (2.3-4.5)
[2021-02-16] MEDS: normal saline 1000ml 1,000 ML IV SCH ×2 (01:42→03:45)
[2021-02-16] MEDS ORDERED: DEXTROSE 5% IV PRN (01:50)
[2021-02-16] MEDS ORDERED: sodium phosphate inj. 30 MMOL in dextrose 5%-water 250 ML IV PRN (01:50)
[2021-02-16] MEDS ORDERED: acetaminophen 325mg tablet PO PRN ×2 (01:50)
[2021-02-16] MEDS ORDERED: mag hydrox/Alum hydrox/simeth 30ml oral suspension PO PRN (01:50)
[2021-02-16] MEDS ORDERED: normal saline 1000ml 1,000 ML IV SCH ×2 (01:50)
[2021-02-16] MEDS ORDERED: morphine 2 MG/ML inj. syringe IV PRN ×2 (01:50)
[2021-02-16] MEDS ORDERED: potassium Cl 20 mEq SR tablet PO PRN ×2 (01:50)
[2021-02-16] MEDS ORDERED: ondansetron/PF 4mg/2ml inj IV PRN (01:50)
[2021-02-16] MEDS ORDERED: WATER IV PRN (01:50)
[2021-02-16] MEDS ORDERED: HYDROcodone/acetaminophen 10/325mg tab PO PRN (01:50)
[2021-02-16] MEDS ORDERED: potassium CL 20mEq in D5-1/2NS 1,000 ML IV PRN (01:50)
[2021-02-16] MEDS ORDERED: insulin regular, human U-100 3ml vial - multi-dose IV PRN (01:50)
[2021-02-16] MEDS ORDERED: HYDROcodone/acetaminophen 5mg/325mg tablet PO PRN (01:50)
[2021-02-16] MEDS ORDERED: magnesium hydroxide 30ml (MOM) UD suspension PO PRN (01:50)
[2021-02-16] MEDS ORDERED: Neutra Phos packet PO PRN (01:50)
[2021-02-16] MEDS ORDERED: sodium phosphate inj. 15 MMOL in dextrose 5%-water 250 ML IV PRN (01:50)
[2021-02-16] MEDS ORDERED: sodium bicarbonate (8.4%) inj. 100 MEQ in dextrose 5% water 500ml 500 ML IV PRN (01:50)
[2021-02-16] MEDS ORDERED: potassium Cl 40MEQ/1/2NS 520ml 520 ML IV PRN ×2 (01:50)
[2021-02-16] MEDS ORDERED: Insulin Reg/NS 100units/100mL 100 ML IV SCH (01:50)
[2021-02-16] MEDS ORDERED: SODIUM BICARBONATE IV PRN (01:50)
--- NOTE | 2021-02-16 02:19 | NUR ---
REC'D REPORT FOR TESSA ARNOLD - ASSUMING CARE. PT ON INSULIN DRIP. FLUID BOLUS HAS COMPLETED.
[2021-02-16] MEDS ORDERED: INSU100I31 SQ (02:42)
[2021-02-16] MEDS ORDERED: INSU100I39 SQ (02:42)
--- NOTE | 2021-02-16 03:15 | NUR ---
PT RESTING. AMBULATORY TO RESTROOM EARLIER AND BACK TO BED.
[2021-02-16] MEDS ORDERED: dextrose 5%-1/2 normal saline 1,000 ML IV SCH (03:20)
[2021-02-16 03:36] LABS: ALBUMIN 3.4 G/DL (3.4-5.0); ANION GAP 19 (8-16); BLOOD UREA NITROGEN 16 MG/DL (7-18); BUN/CREATININE RATIO 21.9 (6.6-38.0); CALCIUM 7.5 MG/DL (8.5-10.1); CHLORIDE 111 MMOL/L (99-107); CREATININE 0.73 MG/DL (0.40-0.90); GLUCOSE 229 MG/DL (70-104); PHOSPHORUS 2.5 MG/DL (2.3-4.5); POTASSIUM 3.6 MMOL/L (3.5-5.1); SODIUM 144 MMOL/L (135-145); eGFR 90 ML/MIN
[2021-02-16 03:38] LABS: TOTAL CARBON DIOXIDE 14.5 MMOL/L (24-32)
--- NOTE | 2021-02-16 04:23 | NUR ---
PT RESTING ON GURNEY. NO DISTRESS. NO NEEDS AT THIS TIME.
--- NOTE | 2021-02-16 04:54 | NUR ---
PT RESTING. SHE REMAINS ON INSULIN DRIP AT 5 PER HOUR WITH D5 1/2NS WITH 20K AT 150/HR.
--- NOTE | 2021-02-16 05:06 | NUR ---
HOSPITALIST AT BEDSIDE
[2021-02-16] MEDS ORDERED: K and/or MAG REPLACEMENT MC SCH ×2 (08:00)
[2021-02-16 08:22] LABS: ALBUMIN 3.5 G/DL (3.4-5.0); ANION GAP 13 (8-16); BLOOD UREA NITROGEN 14 MG/DL (7-18); BUN/CREATININE RATIO 19.7 (6.6-38.0); CALCIUM 7.5 MG/DL (8.5-10.1); CHLORIDE 110 MMOL/L (99-107); CREATININE 0.71 MG/DL (0.40-0.90); GLUCOSE 140 MG/DL (70-104); POTASSIUM 3.4 MMOL/L (3.5-5.1); SODIUM 145 MMOL/L (135-145); TOTAL CARBON DIOXIDE 22.4 MMOL/L (24-32); eGFR > 90 ML/MIN
[2021-02-16 08:41] LABS: PHOSPHORUS 1.5 MG/DL (2.3-4.5)
[2021-02-16 10:33] VITALS: BP 104/73
--- NOTE | 2021-02-16 11:47 | NUR ---
PT FEELS MUCH BETTER, REPORTS WANTING TO GO HOME. HOSPITALIST NIGEL PG'ED X 2.
--- NOTE | 2021-02-16 12:49 | NUR ---
PATIENT CHOOSES TO LEAVE AMA AND STATES THAT SHE IS AWARE OF THE RISKS SHE IS TAKING BY LEAVING. IV X 2 REMOVED AND PATIENT DEPARTED AMBULATORY IN GOOD CONDITION. MESSAGE TO DR. MANNING TO INFORM OF AMA DEPARTURE. PAGER ID: [phone] MESSAGE: PATIENT IN ER BED #14, JENNIFER LEFT AMA. THANK YOU. IF YOU HAVE QUESTIONS, CALL TESSA BAKER [phone]
== END 2021-02-16 12:54 | disposition left against medical advice (07) ==
LOC: ER 20:26 → ED HOLD 02-16 01:50 → UNDOADMIN 02-16 01:50
DX: E10.10 Type 1 diabetes mellitus with ketoacidosis without coma (principal); R10.13 Epigastric pain; F12.188 Cannabis abuse with other cannabis-induced disorder; E86.0 Dehydration; K29.00 Acute gastritis without bleeding; F32.9 Major depressive disorder, single episode, unspecified; F12.90 Cannabis use, unspecified, uncomplicated; Z72.89 Other problems related to lifestyle; Z88.0 Allergy status to penicillin; Z79.899 Other long term (current) drug therapy
CPT/HCPCS: 36415; 36600; 80048; 80053; 80305; 81001; 81025; 82803; 82948; 83690; 84100; 85018; 85025; 87081; 93005; 96365; 96367; 96372; 96375; 99285; C9113; J1630; J3480; J3490; J7030; 96374; J1815

== ENCOUNTER 2022-04-17 23:45 | Emergency (ER) | payer MEDICAID ==
[~2022-04-17] VITALS: Ht 149.9 cm; Wt 63.6 kg
[~2022-04-17 23:45] MED LIST changes: -FAMO-128 PO; +INSU100I31 SQ; +INSU100I39 SQ; -NO HOME MEDS; -ONDA4TAB6 PO; -PROM25SU9 RC; -PROM25TA14 PO
[2022-04-18 00:08] LABS: URINE HCG NEGATIVE (NEG)
[2022-04-18 00:09] LABS: CLARITY,URINE SLIGHTLY CLOUDY (Clear); COLOR,URINE YELLOW (Yellow); GLUCOSE, URINE >=1000 mg/dl (Neg); KETONES,URINE >=80 mg/dl (Neg); LEUKOCYTE ESTERASE ,URINE TRACE (Neg); NITRITES, URINE NEGATIVE (Neg); OCCULT BLOOD,URINE NEGATIVE (Neg); PROTEIN,URINE NEGATIVE (Neg)
[2022-04-18 00:13] LABS: UA COLLECTION TYPE CLN CATCH MIDSTREAM
[2022-04-18 00:14] LABS: BACTERIA,URINE 2+ /HPF (Neg); RBC,URINE NONE SEEN /HPF (0-2); SQUAMOUS EPITHELIAL CELL,UR FEW /LPF (FEW); WBC,URINE 20-30 /HPF (0-4)
[2022-04-18 01:06] LABS: BASOPHILS % (AUTO) 0.6 % (0-1); EOSINOPHILS # (AUTO) 0.1 X10'3 (0-0.9); EOSINOPHILS % (AUTO) 3.4 % (0-6); LYMPHOCYTES # (AUTO) 1.6 X10'3 (1.1-4.8); LYMPHOCYTES % (AUTO) 40.5 % (21-51); MEAN CORPUSCULAR HEMOGLOBIN 31.5 PG (27.0-31.0); MEAN CORPUSCULAR HGB CONC 33.4 g/dL (33.0-36.5); MEAN CORPUSCULAR VOLUME 94.3 FL (78-98); MEAN PLATELET VOLUME 8.2 FL (7.4-10.4); MONOCYTES # (AUTO) 0.3 X10'3 (0-0.9); MONOCYTES % (AUTO) 8.4 % (2-12); NEUTROPHILS # (AUTO) 1.9 X10'3 (1.8-7.7); NEUTROPHILS % (AUTO) 47.1 % (42-75); PLATELET COUNT 322 X10'3 (140-440); RED BLOOD COUNT 4.14 X10'6 (4.20-5.60); RED CELL DISTRIBUTION WIDTH 15.9 % (11.5-14.5)
[2022-04-18 01:23] LABS: ALANINE AMINOTRANSFERASE 24 U/L (12-78); ALBUMIN 3.6 G/DL (3.4-5.0); ALBUMIN/GLOBULIN RATIO 0.9 (1.1-1.5); ALKALINE PHOSPHATASE 79 IU/L (46-116); ANION GAP 12 (8-16); ASPARTATE AMINO TRANSFERASE 22 U/L (10-37); BLOOD UREA NITROGEN 17 MG/DL (7-18); BUN/CREATININE RATIO 22.1 (6.6-38.0); CALCIUM 8.8 MG/DL (8.5-10.1); CHLORIDE 100 MMOL/L (99-107); CREATININE 0.77 MG/DL (0.40-0.90); GLUCOSE 332 MG/DL (70-104); LIPASE 63 U/L (73-393); POTASSIUM 3.7 MMOL/L (3.5-5.1); SODIUM 140 MMOL/L (135-145); TOTAL CARBON DIOXIDE 28.1 MMOL/L (24-32); TOTAL PROTEIN 7.6 G/DL (6.4-8.2); eGFR 84 ML/MIN
[2022-04-18] MEDS ORDERED: normal saline 1000ml 1,000 ML IV ONE (02:55)
[2022-04-18] MEDS ORDERED: metoclopramide 5 mg/ml inj IV ONE (03:00)
[2022-04-18] MEDS ORDERED: normal saline 1000ML IV soln IVB ONE (03:20)
[2022-04-18] MEDS ORDERED: haloperidol lactate 5mg/ml inj IM ONE (03:20)
[2022-04-18] MEDS ORDERED: ONDA4TAB12 PO (04:27)
[2022-04-18 04:36] VITALS: BP 17/80
== END 2022-04-18 04:45 | disposition home or self-care (01) ==
LOC: ER 23:46
DX: U07.1 COVID-19 (principal); K52.9 Noninfective gastroenteritis and colitis, unspecified; R50.9 Fever, unspecified; R11.10 Vomiting, unspecified; E11.9 Type 2 diabetes mellitus without complications; F32.A Depression, unspecified; F12.90 Cannabis use, unspecified, uncomplicated; Z72.89 Other problems related to lifestyle; Z56.0 Unemployment, unspecified; Z88.0 Allergy status to penicillin; Z79.4 Long term (current) use of insulin; Z79.899 Other long term (current) drug therapy
CPT/HCPCS: 36415; 80053; 81001; 81025; 83690; 85025; 87077; 87088; 87186; 87502; 87503; 87635; 96361; 96374; 99283; C9803; J2765; J7030; 81003

== ENCOUNTER 2022-04-28 09:05 | Emergency (ER) | payer MEDICAID ==
[~2022-04-28] VITALS: Ht 149.9 cm; Wt 63.6 kg
[~2022-04-28 09:05] MED LIST changes: +ONDA4TAB12 PO
[2022-04-28 09:07] VITALS: BP 140/97
[2022-04-28 09:26] LABS: BASOPHILS # (AUTO) 0.1 X10'3 (0-0.2); BASOPHILS % (AUTO) 1.2 % (0-1); EOSINOPHILS # (AUTO) 0.2 X10'3 (0-0.9); EOSINOPHILS % (AUTO) 2.1 % (0-6); HEMATOCRIT 35.8 % (35.0-45.0); HEMOGLOBIN 12.1 g/dl (12.0-16.0); LYMPHOCYTES # (AUTO) 2.2 X10'3 (1.1-4.8); LYMPHOCYTES % (AUTO) 25.5 % (21-51); MEAN CORPUSCULAR HEMOGLOBIN 31.8 PG (27.0-31.0); MEAN CORPUSCULAR HGB CONC 33.9 g/dL (33.0-36.5); MEAN CORPUSCULAR VOLUME 93.8 FL (78-98); MEAN PLATELET VOLUME 8.1 FL (7.4-10.4); MONOCYTES # (AUTO) 0.6 X10'3 (0-0.9); MONOCYTES % (AUTO) 6.8 % (2-12); NEUTROPHILS # (AUTO) 5.7 X10'3 (1.8-7.7); NEUTROPHILS % (AUTO) 64.4 % (42-75); PLATELET COUNT 445 X10'3 (140-440); RED BLOOD COUNT 3.81 X10'6 (4.20-5.60); RED CELL DISTRIBUTION WIDTH 14.4 % (11.5-14.5); WHITE BLOOD COUNT 8.8 X10'3 (4.5-11.0)
[2022-04-28] MEDS ORDERED: normal saline 1000ML IV soln IVB ONE (09:35)
[2022-04-28] MEDS ORDERED: metoclopramide 5 mg/ml inj IV ONE (09:35)
[2022-04-28 09:40] LABS: ALANINE AMINOTRANSFERASE 8 U/L (12-78); ALBUMIN 3.3 G/DL (3.4-5.0); ALBUMIN/GLOBULIN RATIO 0.9 (1.1-1.5); ALKALINE PHOSPHATASE 100 IU/L (46-116); ASPARTATE AMINO TRANSFERASE 8 U/L (10-37); BILIRUBIN,TOTAL 0.1 MG/DL (0.1-1.0); BLOOD UREA NITROGEN 14 MG/DL (7-18); BUN/CREATININE RATIO 23.3 (6.6-38.0); CALCIUM 8.2 MG/DL (8.5-10.1); CHLORIDE 101 MMOL/L (99-107); GLUCOSE 243 MG/DL (70-104); POTASSIUM 4.1 MMOL/L (3.5-5.1); SODIUM 139 MMOL/L (135-145); TOTAL PROTEIN 6.8 G/DL (6.4-8.2); eGFR > 90 ML/MIN
[2022-04-28 09:53] LABS: ANION GAP 9 (8-16); TOTAL CARBON DIOXIDE 28.7 MMOL/L (24-32)
[2022-04-28 10:00] LABS: CLARITY,URINE CLEAR (Clear); COLOR,URINE YELLOW (Yellow); GLUCOSE, URINE >=1000 mg/dl (Neg); KETONES,URINE NEGATIVE (Neg); LEUKOCYTE ESTERASE ,URINE NEGATIVE (Neg); NITRITES, URINE NEGATIVE (Neg); OCCULT BLOOD,URINE MODERATE (Neg); PROTEIN,URINE NEGATIVE (Neg); UROBILINOGEN,URINE 0.2 E.U/dL (0.2-1.0)
[2022-04-28] MEDS ORDERED: lactulose 20gm/30ml cup PO ONE (10:00)
[2022-04-28 10:01] LABS: UA COLLECTION TYPE CLN CATCH MIDSTREAM
[2022-04-28 10:21] LABS: BACTERIA,URINE FEW /HPF (Neg); SQUAMOUS EPITHELIAL CELL,UR FEW /LPF (FEW); WBC,URINE 0-4 /HPF (0-4)
[2022-04-28] MEDS ORDERED: bisacodyl 10mg suppository rectal RC STA (10:37)
== END 2022-04-28 11:19 | disposition home or self-care (01) ==
LOC: ER 09:05
DX: K59.00 Constipation, unspecified (principal); K31.84 Gastroparesis; R11.2 Nausea with vomiting, unspecified; E11.9 Type 2 diabetes mellitus without complications; F32.A Depression, unspecified; F12.90 Cannabis use, unspecified, uncomplicated; Z72.89 Other problems related to lifestyle; Z56.0 Unemployment, unspecified; Z88.0 Allergy status to penicillin; Z79.4 Long term (current) use of insulin; Z79.899 Other long term (current) drug therapy
CPT/HCPCS: 36415; 74018; 80053; 81001; 85025; 96361; 96374; 99284; J2765; J7030

== ENCOUNTER 2022-11-03 12:49 | Emergency (ER) | payer MEDICAID ==
[~2022-11-03] VITALS: Ht 149.9 cm; Wt 54.0 kg
[2022-11-03 13:27] LABS: BASOPHILS # (AUTO) 0.1 X10'3 (0-0.2); BASOPHILS % (AUTO) 1.6 % (0-1); EOSINOPHILS # (AUTO) 0.4 X10'3 (0-0.9); EOSINOPHILS % (AUTO) 5.3 % (0-6); HEMATOCRIT 41.8 % (35.0-45.0); HEMOGLOBIN 13.7 g/dl (12.0-16.0); LYMPHOCYTES # (AUTO) 2.4 X10'3 (1.1-4.8); LYMPHOCYTES % (AUTO) 28.9 % (21-51); MEAN CORPUSCULAR HEMOGLOBIN 29.8 PG (27.0-31.0); MEAN CORPUSCULAR HGB CONC 32.8 g/dL (33.0-36.5); MEAN CORPUSCULAR VOLUME 90.9 FL (78-98); MEAN PLATELET VOLUME 7.8 FL (7.4-10.4); MONOCYTES # (AUTO) 0.6 X10'3 (0-0.9); NEUTROPHILS # (AUTO) 4.8 X10'3 (1.8-7.7); NEUTROPHILS % (AUTO) 57.2 % (42-75); PLATELET COUNT 432 X10'3 (140-440); WHITE BLOOD COUNT 8.3 X10'3 (4.5-11.0)
[2022-11-03 13:33] LABS: CLARITY,URINE CLOUDY (Clear); COLOR,URINE YELLOW (Yellow); GLUCOSE, URINE NEGATIVE (Neg); KETONES,URINE NEGATIVE (Neg); LEUKOCYTE ESTERASE ,URINE NEGATIVE (Neg); NITRITES, URINE POSITIVE (Neg); OCCULT BLOOD,URINE NEGATIVE (Neg); PROTEIN,URINE TRACE mg/dl (Neg); URINE HCG NEGATIVE (NEG)
[2022-11-03 13:41] LABS: UA COLLECTION TYPE CLN CATCH MIDSTREAM
[2022-11-03 13:42] LABS: BACTERIA,URINE 3+ /HPF (Neg); MUCUS STRANDS MODERATE /LPF (Neg); SQUAMOUS EPITHELIAL CELL,UR MANY /LPF (FEW)
[2022-11-03 13:42] LABS: ALANINE AMINOTRANSFERASE 23 U/L (12-78); ALBUMIN 3.9 G/DL (3.4-5.0); ALKALINE PHOSPHATASE 69 IU/L (46-116); ANION GAP 9 (8-16); ASPARTATE AMINO TRANSFERASE 17 U/L (10-37); BILIRUBIN,TOTAL 0.5 MG/DL (0.1-1.0); BLOOD UREA NITROGEN 18 MG/DL (7-18); BUN/CREATININE RATIO 21.7 (6.6-38.0); CALCIUM 9.2 MG/DL (8.5-10.1); CHLORIDE 97 MMOL/L (99-107); CREATININE 0.83 MG/DL (0.40-0.90); GLUCOSE 157 MG/DL (70-104); LIPASE 56 U/L (73-393); POTASSIUM 3.4 MMOL/L (3.5-5.1); SODIUM 138 MMOL/L (135-145); TOTAL CARBON DIOXIDE 32.5 MMOL/L (24-32); eGFR 77 ML/MIN
[2022-11-03 13:43] LABS: RBC,URINE 0-2 /HPF (0-2)
--- NOTE | 2022-11-03 13:45 | NUR ---
URINE REJECTED FOR CULTURE
[2022-11-03] MEDS ORDERED: metoclopramide 5 mg/ml inj IV ONE (15:40)
[2022-11-03] MEDS ORDERED: normal saline 1000ML IV soln IVB ONE (15:40)
[2022-11-03] MEDS ORDERED: LORazepam 2 mg/ml vial IV ONE (16:30)
[2022-11-03] MEDS ORDERED: haloperidol lactate 5mg/ml inj IM ONE (16:32)
[2022-11-03] MEDS ORDERED: PROC25SU31 RC (17:13)
[2022-11-03 17:14] VITALS: BP 138/87
== END 2022-11-03 17:36 | disposition home or self-care (01) ==
LOC: ER 12:49
DX: R11.2 Nausea with vomiting, unspecified (principal); E10.69 Type 1 diabetes mellitus with other specified complication; E86.0 Dehydration; F32.A Depression, unspecified; F12.10 Cannabis abuse, uncomplicated; Z88.0 Allergy status to penicillin; Z79.899 Other long term (current) drug therapy; Z87.19 Personal history of other diseases of the digestive system
CPT/HCPCS: 36415; 80053; 81001; 81025; 82948; 83690; 85025; 96361; 96372; 96374; 96375; 99284; J1630; J2060; J2765; J7030

== ENCOUNTER 2022-11-06 14:16 | Emergency (ER) | payer MEDICAID ==
[~2022-11-06] VITALS: Ht 149.9 cm; Wt 54.0 kg
[~2022-11-06 14:16] MED LIST changes: +PROC25SU31 RC
[2022-11-06 15:07] LABS: URINE HCG NEGATIVE (NEG)
[2022-11-06 15:17] LABS: BASOPHILS # (AUTO) 0.1 X10'3 (0-0.2); BASOPHILS % (AUTO) 1.3 % (0-1); EOSINOPHILS # (AUTO) 0.5 X10'3 (0-0.9); EOSINOPHILS % (AUTO) 6.1 % (0-6); HEMATOCRIT 40.4 % (35.0-45.0); HEMOGLOBIN 13.5 g/dl (12.0-16.0); LYMPHOCYTES # (AUTO) 2.8 X10'3 (1.1-4.8); MEAN CORPUSCULAR HEMOGLOBIN 30.8 PG (27.0-31.0); MEAN CORPUSCULAR HGB CONC 33.5 g/dL (33.0-36.5); MEAN CORPUSCULAR VOLUME 92.1 FL (78-98); MEAN PLATELET VOLUME 7.9 FL (7.4-10.4); MONOCYTES # (AUTO) 0.6 X10'3 (0-0.9); MONOCYTES % (AUTO) 6.5 % (2-12); NEUTROPHILS # (AUTO) 4.5 X10'3 (1.8-7.7); NEUTROPHILS % (AUTO) 53.1 % (42-75); PLATELET COUNT 355 X10'3 (140-440); RED BLOOD COUNT 4.39 X10'6 (4.20-5.60); RED CELL DISTRIBUTION WIDTH 15.2 % (11.5-14.5); WHITE BLOOD COUNT 8.5 X10'3 (4.5-11.0)
[2022-11-06 15:17] LABS: CLARITY,URINE SLIGHTLY CLOUDY (Clear); COLOR,URINE YELLOW (Yellow); GLUCOSE, URINE 100 mg/dl (Neg); KETONES,URINE TRACE mg/dl (Neg); LEUKOCYTE ESTERASE ,URINE NEGATIVE (Neg); NITRITES, URINE NEGATIVE (Neg); OCCULT BLOOD,URINE NEGATIVE (Neg); PROTEIN,URINE TRACE mg/dl (Neg); UROBILINOGEN,URINE 0.2 E.U/dL (0.2-1.0)
[2022-11-06 15:20] LABS: UA COLLECTION TYPE CLN CATCH MIDSTREAM
[2022-11-06 15:23] LABS: BACTERIA,URINE 4+ /HPF (Neg); MUCUS STRANDS MODERATE /LPF (Neg); RBC,URINE 0-2 /HPF (0-2); SQUAMOUS EPITHELIAL CELL,UR MODERATE /LPF (FEW)
[2022-11-06 15:31] LABS: ALANINE AMINOTRANSFERASE 17 U/L (12-78); ALBUMIN 3.9 G/DL (3.4-5.0); ALKALINE PHOSPHATASE 75 IU/L (46-116); ANION GAP 5 (8-16); ASPARTATE AMINO TRANSFERASE 15 U/L (10-37); BILIRUBIN,TOTAL 0.5 MG/DL (0.1-1.0); BLOOD UREA NITROGEN 15 MG/DL (7-18); BUN/CREATININE RATIO 18.3 (6.6-38.0); CALCIUM 8.8 MG/DL (8.5-10.1); CHLORIDE 102 MMOL/L (99-107); CREATININE 0.82 MG/DL (0.40-0.90); GLUCOSE 149 MG/DL (70-104); LIPASE 58 U/L (73-393); POTASSIUM 3.4 MMOL/L (3.5-5.1); SODIUM 140 MMOL/L (135-145); TOTAL CARBON DIOXIDE 32.6 MMOL/L (24-32); TOTAL PROTEIN 7.8 G/DL (6.4-8.2); eGFR 78 ML/MIN
[2022-11-06] MEDS ORDERED: sulfamethoxazole/trimethoprim DS (800/160mg) tablet PO ONE (16:15)
[2022-11-06] MEDS ORDERED: normal saline 1000ML IV soln IVB ONE (16:15)
[2022-11-06] MEDS ORDERED: metoclopramide 5 mg/ml inj IV ONE (16:20)
[2022-11-06] MEDS ORDERED: diphenhydrAMINE 50 mg/ml inj IV ONE (16:20)
[2022-11-06 16:49] VITALS: BP 113/86
[2022-11-06] MEDS ORDERED: scopolamine 1mg/72 hr patch TD ONE (16:50)
[2022-11-06] MEDS ORDERED: scopolamine 1.5mg patch.TD72 (72-hour patch) TD ONE (16:50)
[2022-11-06] MEDS ORDERED: LIDOcaine Viscous 15ml cup MM ONE (17:25)
[2022-11-06] MEDS ORDERED: SULF1TAB49 PO (18:51)
== END 2022-11-06 19:06 | disposition home or self-care (01) ==
LOC: ER 14:17
DX: N39.0 Urinary tract infection, site not specified (principal); R21 Rash and other nonspecific skin eruption; R10.30 Lower abdominal pain, unspecified; R11.2 Nausea with vomiting, unspecified; E11.9 Type 2 diabetes mellitus without complications; F32.9 Major depressive disorder, single episode, unspecified; F12.90 Cannabis use, unspecified, uncomplicated; Z56.0 Unemployment, unspecified; Z72.89 Other problems related to lifestyle; Z79.4 Long term (current) use of insulin; Z88.0 Allergy status to penicillin; Z79.899 Other long term (current) drug therapy
CPT/HCPCS: 36415; 80053; 81001; 81025; 82948; 83690; 85025; 87077; 87088; 87186; 96360; 99284; J7030

== ENCOUNTER 2024-06-20 16:54 | Emergency (ER) | payer MEDICAID ==
[~2024-06-20] VITALS: Ht 149.9 cm; Wt 52.3 kg
[~2024-06-20 16:54] MED LIST changes: -ONDA4TAB12 PO; -PROC25SU31 RC
[2024-06-20 17:12] VITALS: BP 148/97; PULSE 107; RESP 16; TEMP 98.4; O2SAT 98
[2024-06-20] MEDS ORDERED: SULF1TAB49 PO (17:49)
[2024-06-20] MEDS: LIDOcaine 1% 30ml preserv. free vial IJ ONE (18:07)
== END 2024-06-20 18:33 | disposition home or self-care (01) ==
LOC: ER 16:54
DX: L02.414 Cutaneous abscess of left upper limb (principal); E11.9 Type 2 diabetes mellitus without complications; F32.A Depression, unspecified; F10.90 Alcohol use, unspecified, uncomplicated; F12.90 Cannabis use, unspecified, uncomplicated; Z88.0 Allergy status to penicillin; Z79.4 Long term (current) use of insulin; Z56.0 Unemployment, unspecified
CPT/HCPCS: 10060; 99283; A6266; A6258; A6449

== ENCOUNTER 2024-06-22 16:48 | Emergency (ER) | payer MEDICAID ==
[~2024-06-22] VITALS: Ht 149.9 cm; Wt 54.8 kg
[~2024-06-22 16:48] MED LIST changes: +SULF1TAB49 PO
[2024-06-22 18:26] VITALS: BP 124/86; PULSE 63; RESP 18; TEMP 98; O2SAT 99
== END 2024-06-22 18:30 | disposition home or self-care (01) ==
LOC: ER 16:49
DX: L02.414 Cutaneous abscess of left upper limb (principal); Z48.00 Encounter for change or removal of nonsurgical wound dressing
CPT/HCPCS: 99282; A6258

== ENCOUNTER 2024-08-22 11:30 | Emergency (ER) | payer MEDICAID ==
[~2024-08-22] VITALS: Ht 149.9 cm; Wt 51.2 kg
[~2024-08-22 11:30] MED LIST changes: -SULF1TAB49 PO
[2024-08-22] MEDS ORDERED: SULF1TAB49 PO (12:22)
[2024-08-22] MEDS: CefTRIAXone 1000mg IM Kit (w/lidocaine diluent) IM ONE (12:29)
[2024-08-22] MEDS: ketorolac trometh 30MG/ML vial 30 MG/ML VIAL IM ONE (12:31)
[2024-08-22 12:38] VITALS: BP 113/76; PULSE 91; RESP 16; TEMP 98; O2SAT 100
[2024-08-25] MEDS ORDERED: LIDOcaine 1% W/epiNEPHrine 1:100,000 20ml vial SQ STA (20:36)
[2024-08-25] MEDS ORDERED: sulfamethoxazole/trimethoprim DS (800/160mg) tablet PO STA (20:36)
== END 2024-08-22 12:40 | disposition home or self-care (01) ==
LOC: ER 11:30
DX: L03.811 Cellulitis of head [any part, except face] (principal); E11.9 Type 2 diabetes mellitus without complications; F32.A Depression, unspecified; F12.90 Cannabis use, unspecified, uncomplicated; F10.90 Alcohol use, unspecified, uncomplicated; Z56.0 Unemployment, unspecified; Z88.0 Allergy status to penicillin; Z79.4 Long term (current) use of insulin
CPT/HCPCS: 96372; 99283; J1885

== ENCOUNTER 2024-08-25 17:22 | Emergency (ER) | payer MEDICAID ==
[~2024-08-25] VITALS: Ht 149.9 cm; Wt 59.0 kg
[~2024-08-25 17:22] MED LIST changes: +SULF1TAB49 PO
[2024-08-25 17:44] VITALS: BP 142/83; PULSE 93; TEMP 98.2; O2SAT 99
[2024-08-25] MEDS: ondansetron 4mg rapidly disintigrating tab PO STA (20:19)
[2024-08-25] MEDS: sulfamethoxazole/trimethoprim DS (800/160mg) tablet PO STA (21:46)
[2024-08-25] MEDS: LIDOcaine 1% W/epiNEPHrine 1:100,000 20ml vial SQ STA (21:46)
[2024-08-25] MEDS ORDERED: ONDA-243 PO (23:28)
[2024-08-25 23:42] VITALS: RESP 16
== END 2024-08-25 23:44 | disposition home or self-care (01) ==
LOC: ER 17:23
DX: L02.01 Cutaneous abscess of face (principal); E11.9 Type 2 diabetes mellitus without complications; F32.A Depression, unspecified; F12.90 Cannabis use, unspecified, uncomplicated; Z88.0 Allergy status to penicillin; Z79.4 Long term (current) use of insulin; Z79.2 Long term (current) use of antibiotics
CPT/HCPCS: 10060; 82948; 99283; A6266; A6449

== ENCOUNTER 2024-09-21 17:27 | Inpatient (IN) | payer MEDICAID ==
[~2024-09-21] VITALS: Ht 157.5 cm; Wt 50.8 kg
[~2024-09-21 17:27] MED LIST changes: +ONDA-243 PO; -SULF1TAB49 PO; +etomidate 2mg/ml inj. ONE
[2024-09-21] MEDS ORDERED: fentaNYL/PF 50MCG/1 ML 2ML syringe IV PRN (17:45)
[2024-09-21 17:52] VITALS: BP 98/36; PULSE 97; RESP 16; O2SAT 100
[2024-09-21] MEDS ORDERED: normal saline 1000ml 1,000 ML IV SCH (18:00)
[2024-09-21] MEDS ORDERED: potassium Cl 20 mEq SR tablet PO PRN ×5 (18:00→18:20)
[2024-09-21] MEDS ORDERED: Neutra Phos packet PO PRN (18:00)
[2024-09-21] MEDS ORDERED: sodium bicarbonate (8.4%) inj. 100 MEQ in dextrose 5% water 500ml 500 ML IV PRN ×2 (18:00→18:20)
[2024-09-21] MEDS ORDERED: sodium bicarbonate (8.4%) inj. 50 MEQ in dextrose 5% water 500ml 250 ML IV PRN ×2 (18:00→18:20)
[2024-09-21] MEDS ORDERED: potassium CL 20mEq in D5-1/2NS 1,000 ML IV PRN (18:00)
[2024-09-21] MEDS ORDERED: sodium phosphate inj. 15 MMOL in dextrose 5%-water 250 ML IV PRN (18:00)
[2024-09-21] MEDS ORDERED: sodium phosphate inj. 30 MMOL in dextrose 5%-water 250 ML IV PRN (18:00)
[2024-09-21] MEDS: FENTANYL-0.9 % NACL/PF 100 ML IV SCH (18:06)
[2024-09-21] MEDS: midazolam 100mg in NS 100ml 100 ML IV SCH (18:07)
[2024-09-21] MEDS: midazolam 1 mg/ML 2ml injection IV ONE (18:08)
[2024-09-21] MEDS: normal saline 1000ml 1,000 ML IV SCH ×2 (18:08→20:14)
[2024-09-21 18:14] LABS: ABG BASE EXCESS -27.5 mmol/L (-2.0-3.0); ABG HCO3 4.5 mmol/L (21.0-28.0); ABG OXYGEN SATURATION 99.6 % (94.0-98.0); ABG PCO2 (T) 21.6 mmHg (32.0-45.0); ABG PH (T) 6.914 (7.350-7.450); ABG PO2 (T) 390.1 mmHg (83.0-108.0); ALLEN'S TEST POSITIVE; FCOHb 0.3 % (0.5-1.5); FHHb 0.4 % (0.0-5.0); FMetHb 0.2 % (0.0-1.5); FO2Hb 99.1 % (94.0-98.0); MODE PRVC; PATIENT TEMPERATURE 34.3; PEEP 5 cm H2O; RESPIRATORY RATE 16 b/min; TIDAL VOLUME 400 mL; TOTAL HEMOGLOBIN 11.6 G/dl (12.0-16.0)
[2024-09-21] MEDS ORDERED: magnesium sulf-water 2g/50mL 50 ML IV PRN (18:20)
[2024-09-21] MEDS ORDERED: magnesium sulf-water 4G/100mL 100 ML IV PRN (18:20)
[2024-09-21] MEDS ORDERED: magnesium Cl slow-release 64mg tablet PO PRN (18:20)
[2024-09-21] MEDS ORDERED: potassium Cl 40MEQ/1/2NS 520ml 520 ML IV PRN (18:20)
[2024-09-21] MEDS ORDERED: dextrose 50%-water 50ml dispensing syringe IV PRN (18:20)
[2024-09-21] MEDS ORDERED: acetaminophen 325mg tablet PO PRN (18:20)
[2024-09-21] MEDS ORDERED: mag hydrox/Alum hydrox/simeth 30ml oral suspension PO PRN (18:20)
[2024-09-21] MEDS ORDERED: magnesium hydroxide 30ml (MOM) UD suspension PO PRN (18:20)
[2024-09-21] MEDS ORDERED: Insulin Reg/NS 100units/100mL 100 ML IV SCH (18:20)
[2024-09-21 18:22] VITALS: BP 94/41; PULSE 92; RESP 16; O2SAT 100
[2024-09-21] MEDS: Insulin Reg/NS 100units/100mL 100 ML IV SCH (18:34)
[2024-09-21] MEDS: ringers solution, lacted 1,000 ML IV ONE ×3 (18:53→20:18)
[2024-09-21 18:58] LABS: BASOPHILS # (AUTO) 0.1 X10'3 (0-0.2); BASOPHILS % (AUTO) 0.5 % (0-1); EOSINOPHILS % (AUTO) 0 % (0-6); LYMPHOCYTES # (AUTO) 1.5 X10'3 (1.1-4.8); LYMPHOCYTES % (AUTO) 7.8 % (21-51); MEAN PLATELET VOLUME 9.2 FL (7.4-10.4); MONOCYTES # (AUTO) 1.8 X10'3 (0-0.9); MONOCYTES % (AUTO) 9.6 % (2-12); NEUTROPHILS # (AUTO) 15.5 X10'3 (1.8-7.7); NEUTROPHILS % (AUTO) 82.1 % (42-75); PLATELET COUNT 517 X10'3 (140-440); WHITE BLOOD COUNT 18.9 X10'3 (4.5-11.0)
[2024-09-21 19:18] LABS: ALANINE AMINOTRANSFERASE 33 U/L (12-78); ALBUMIN 2.6 G/DL (3.4-5.0); ALBUMIN/GLOBULIN RATIO 0.7 (1.1-1.5); ALKALINE PHOSPHATASE 169 IU/L (46-116); ANION GAP 32 (8-16); ASPARTATE AMINO TRANSFERASE 34 U/L (10-37); BILIRUBIN,TOTAL 0.6 MG/DL (0.1-1.0); BLOOD UREA NITROGEN 59 MG/DL (7-18); BUN/CREATININE RATIO 16.8 (10.0-20.0); CALCIUM 6.8 MG/DL (8.5-10.1); CHLORIDE 78 MMOL/L (99-107); CREATININE 3.51 MG/DL (0.40-0.90); MAGNESIUM 2.9 MG/DL (1.5-2.4); TOTAL PROTEIN 6.1 G/DL (6.4-8.2); eCRCL 17 ML/MIN; eGFR 14 ML/MIN
[2024-09-21 19:20] LABS: ETHANOL < 10 MG/DL (<10)
[2024-09-21 19:21] LABS: SODIUM 119 MMOL/L (135-145)
[2024-09-21 19:22] LABS: GLUCOSE 1890 MG/DL (70-104); POTASSIUM 6.6 MMOL/L (3.5-5.1); TOTAL CARBON DIOXIDE 9.5 MMOL/L (24-32)
[2024-09-21 19:34] LABS: PHOSPHORUS 7.6 MG/DL (2.3-4.5)
[2024-09-21 19:42] LABS: OSMOLALITY 427 MOSM/K (280-300)
[2024-09-21 19:45] LABS: HEMATOCRIT 31.8 % (35.0-45.0); HEMOGLOBIN 11.1 g/dl (12.0-16.0); MEAN CORPUSCULAR HGB CONC 34.9 g/dL (33.0-36.5); RED CELL DISTRIBUTION WIDTH 16.4 % (11.5-14.5)
[2024-09-21 19:52] LABS: TOTAL CELLS COUNTED 100; TOXIC VACUOLATION 2+
[2024-09-21 19:54] LABS: ANISOCYTOSIS FEW; PLATELET ESTIMATE INCREASED
[2024-09-21 19:55] LABS: ELLIPTOCYTES FEW
[2024-09-21] MEDS: K and/or MAG REPLACEMENT MC SCH (20:00)
[2024-09-21] MEDS ORDERED: K and/or MAG REPLACEMENT MC SCH ×2 (20:00)
[2024-09-21 20:30] LABS: HEMOGLOBIN A1C > 12.0 % (4.5-6.2)
[2024-09-21] MEDS: heparin, porcine 5000 units/ml vial SQ SCH (20:30)
[2024-09-21 20:40] LABS: BILIRUBIN,URINE NEGATIVE (Neg); CLARITY,URINE CLEAR (Clear); COLOR,URINE YELLOW (Yellow); GLUCOSE, URINE >=1000 mg/dl (Neg); KETONES,URINE 15 mg/dl (Neg); LEUKOCYTE ESTERASE ,URINE NEGATIVE (Neg); NITRITES, URINE NEGATIVE (Neg); OCCULT BLOOD,URINE SMALL (Neg); PH,URINE 5.5 (4.8-8.0); PROTEIN,URINE TRACE mg/dl (Neg); UROBILINOGEN,URINE 0.2 E.U/dL (0.2-1.0)
[2024-09-21 20:56] LABS: URINE AMPHETAMINE SCREEN NEGATIVE (Neg); URINE BARBITUATE SCREEN NEGATIVE (Neg); URINE BENZODIAZEPINES SCREEN NEGATIVE (Neg); URINE CANNABINOID SCREEN NEGATIVE (Neg); URINE COCAINE SCREEN NEGATIVE (Neg); URINE METHADONE SCREEN NEGATIVE (Neg); URINE OPIATE SCREEN NEGATIVE (Neg); URINE PHENCYCLIDINE SCREEN NEGATIVE (Neg)
[2024-09-21 21:13] LABS: UA COLLECTION TYPE CLN CATCH MIDSTREAM
[2024-09-21 21:16] LABS: WBC,URINE 0-4 /HPF (0-4)
[2024-09-21 21:17] LABS: BACTERIA,URINE FEW /HPF (Neg); COARSE GRANULAR CAST 0-3 /LPF (NEGATIVE); HYALINE CASTS 0-3 /LPF (NEGATIVE); MUCUS STRANDS FEW /LPF (Neg); RBC,URINE 0-2 /HPF (0-2); SQUAMOUS EPITHELIAL CELL,UR MODERATE /LPF (FEW)
[2024-09-21 21:22] LABS: ABG BASE EXCESS -20.2 mmol/L (-2.0-3.0); ABG HCO3 6.4 mmol/L (21.0-28.0); ABG OXYGEN SATURATION 98.9 % (94.0-98.0); ABG PCO2 (T) 17.6 mmHg (32.0-45.0); ABG PH (T) 7.174 (7.350-7.450); ABG PO2 (T) 196.6 mmHg (83.0-108.0); ALLEN'S TEST Modified; FCOHb 0.3 % (0.5-1.5); FHHb 1.1 % (0.0-5.0); FMetHb 0.1 % (0.0-1.5); FO2Hb 98.5 % (94.0-98.0); MODE VENT- AC PRVC; PATIENT TEMPERATURE 36.2; PEEP 5 cm H2O; RESPIRATORY RATE 16 b/min; TIDAL VOLUME 400 mL; TOTAL HEMOGLOBIN 11.6 G/dl (12.0-16.0)
[2024-09-21 21:24] VITALS: BP 103/57; PULSE 115; RESP 16; O2SAT 99
[2024-09-21] MEDS: insulin regular, human 10 units/0.1 ml syringe IV ONE (21:27)
[2024-09-21] MEDS: propofol 1000mg/100ml bottle 100 ML IV SCH (22:38)
[2024-09-21 23:01] LABS: ALBUMIN 2.5 G/DL (3.4-5.0); ANION GAP 25 (8-16); BLOOD UREA NITROGEN 56 MG/DL (7-18); BUN/CREATININE RATIO 15.9 (10.0-20.0); CALCIUM 6.2 MG/DL (8.5-10.1); CHLORIDE 91 MMOL/L (99-107); CREATININE 3.53 MG/DL (0.40-0.90); MAGNESIUM 2.4 MG/DL (1.5-2.4); PHOSPHORUS 6.8 MG/DL (2.3-4.5); POTASSIUM 3.7 MMOL/L (3.5-5.1); SODIUM 129 MMOL/L (135-145); eCRCL 17 ML/MIN; eGFR 14 ML/MIN
[2024-09-21 23:14] LABS: ABG BASE EXCESS -17.6 mmol/L (-2.0-3.0); ABG HCO3 8.8 mmol/L (21.0-28.0); ABG OXYGEN SATURATION 98.3 % (94.0-98.0); ABG PCO2 (T) 23.9 mmHg (32.0-45.0); ABG PH (T) 7.186 (7.350-7.450); ABG PO2 (T) 146.3 mmHg (83.0-108.0); ALLEN'S TEST Modified; FCOHb 0.3 % (0.5-1.5); FHHb 1.7 % (0.0-5.0); FMetHb 0.3 % (0.0-1.5); FO2Hb 97.7 % (94.0-98.0); MODE VENT- AC PRVC; PATIENT TEMPERATURE 37.6; PEEP 5 cm H2O; RESPIRATORY RATE 14 b/min; TIDAL VOLUME 400 mL; TOTAL HEMOGLOBIN 11.6 G/dl (12.0-16.0)
[2024-09-21 23:33] LABS: GLUCOSE 1580 MG/DL (70-104)
[2024-09-22] VITALS (23 sets, daily range): BP systolic 88–134; BP diastolic 54–92; PULSE 107–128; RESP 12–20; TEMP 97.9–98.4; O2SAT 94–100
[2024-09-22] MEDS: CefTRIAXone 2gm/D5W 50ml BAG 50 ML IV ONE (00:37)
[2024-09-22 00:53] LABS: ALANINE AMINOTRANSFERASE 36 U/L (12-78); ALBUMIN 2.6 G/DL (3.4-5.0); ALBUMIN/GLOBULIN RATIO 0.8 (1.1-1.5); ALKALINE PHOSPHATASE 153 IU/L (46-116); ANION GAP 26 (8-16); ASPARTATE AMINO TRANSFERASE 42 U/L (10-37); BILIRUBIN,TOTAL 0.4 MG/DL (0.1-1.0); BLOOD UREA NITROGEN 53 MG/DL (7-18); BUN/CREATININE RATIO 15.8 (10.0-20.0); CALCIUM 6.8 MG/DL (8.5-10.1); CHLORIDE 97 MMOL/L (99-107); CREATININE 3.35 MG/DL (0.40-0.90); MAGNESIUM 2.4 MG/DL (1.5-2.4); PHOSPHORUS 5.7 MG/DL (2.3-4.5); POTASSIUM 3.4 MMOL/L (3.5-5.1); SODIUM 137 MMOL/L (135-145); eCRCL 18 ML/MIN; eGFR 15 ML/MIN
[2024-09-22 01:10] LABS: GLUCOSE 1191 MG/DL (70-104); TOTAL CARBON DIOXIDE 14.5 MMOL/L (24-32)
[2024-09-22] MEDS: potassium Cl 40MEQ/1/2NS 520ml 520 ML IV PRN (01:40)
[2024-09-22 02:55] LABS: BASOPHILS # (AUTO) 0.1 X10'3 (0-0.2); BASOPHILS % (AUTO) 0.4 % (0-1); EOSINOPHILS % (AUTO) 0.1 % (0-6); HEMATOCRIT 32.8 % (35.0-45.0); HEMOGLOBIN 10.8 g/dl (12.0-16.0); LYMPHOCYTES # (AUTO) 2.4 X10'3 (1.1-4.8); MEAN CORPUSCULAR HEMOGLOBIN 29.4 PG (27.0-31.0); MEAN CORPUSCULAR HGB CONC 33.1 g/dL (33.0-36.5); MEAN PLATELET VOLUME 7.5 FL (7.4-10.4); MONOCYTES # (AUTO) 2.1 X10'3 (0-0.9); MONOCYTES % (AUTO) 9.7 % (2-12); NEUTROPHILS # (AUTO) 17.1 X10'3 (1.8-7.7); NEUTROPHILS % (AUTO) 78.8 % (42-75); PLATELET COUNT 390 X10'3 (140-440); RED BLOOD COUNT 3.69 X10'6 (4.20-5.60); RED CELL DISTRIBUTION WIDTH 17.5 % (11.5-14.5); WHITE BLOOD COUNT 21.7 X10'3 (4.5-11.0)
[2024-09-22 03:11] LABS: ALBUMIN 2.5 G/DL (3.4-5.0); ANION GAP 22 (8-16); BLOOD UREA NITROGEN 52 MG/DL (7-18); BUN/CREATININE RATIO 16.5 (10.0-20.0); CALCIUM 6.9 MG/DL (8.5-10.1); CHLORIDE 103 MMOL/L (99-107); CREATININE 3.15 MG/DL (0.40-0.90); MAGNESIUM 2.2 MG/DL (1.5-2.4); PHOSPHORUS 4.7 MG/DL (2.3-4.5); POTASSIUM 4.6 MMOL/L (3.5-5.1); SODIUM 141 MMOL/L (135-145); TOTAL CARBON DIOXIDE 16.5 MMOL/L (24-32); eCRCL 19 ML/MIN; eGFR 16 ML/MIN
[2024-09-22 03:41] LABS: GLUCOSE 791 MG/DL (70-104)
[2024-09-22 05:24] LABS: ABG BASE EXCESS -4.1 mmol/L (-2.0-3.0); ABG HCO3 19.9 mmol/L (21.0-28.0); ABG OXYGEN SATURATION 93.2 % (94.0-98.0); ABG PCO2 (T) 32.2 mmHg (32.0-45.0); ABG PH (T) 7.406 (7.350-7.450); ABG PO2 (T) 62.7 mmHg (83.0-108.0); ALLEN'S TEST Modified; FCOHb 0.3 % (0.5-1.5); FHHb 6.8 % (0.0-5.0); FMetHb 0.3 % (0.0-1.5); FO2Hb 92.6 % (94.0-98.0); MODE VENT-AC PRVC; PATIENT TEMPERATURE 36.5; PEEP 5 cm H2O; RESPIRATORY RATE 14 b/min; TIDAL VOLUME 400 mL; TOTAL HEMOGLOBIN 11.6 G/dl (12.0-16.0)
[2024-09-22] MEDS: dextrose 5%-1/2 normal saline 1,000 ML IV PRN (06:54)
[2024-09-22] MEDS: ringers solution, lacted 1,000 ML IV ONE ×3 (07:12→09:15)
[2024-09-22 07:30] LABS: ALBUMIN 2.5 G/DL (3.4-5.0); ANION GAP 10 (8-16); BLOOD UREA NITROGEN 49 MG/DL (7-18); BUN/CREATININE RATIO 19.1 (10.0-20.0); CALCIUM 6.4 MG/DL (8.5-10.1); CHLORIDE 110 MMOL/L (99-107); CREATININE 2.56 MG/DL (0.40-0.90); GLUCOSE 198 MG/DL (70-104); POTASSIUM 3.5 MMOL/L (3.5-5.1); SODIUM 146 MMOL/L (135-145); TOTAL CARBON DIOXIDE 26.4 MMOL/L (24-32); eCRCL 23 ML/MIN; eGFR 21 ML/MIN
[2024-09-22] MEDS: potassium CL 20mEq in D5-1/2NS 1,000 ML IV PRN (08:24)
[2024-09-22] MEDS ORDERED: DEXTROSE 10 % AND 0.45 % NACL 1,000 ML IV SCH (10:00)
[2024-09-22] MEDS: Potassium Cl inj 20 MEQ in DEXTROSE 10 % AND 0.45 % NACL 1,000 ML IV PRN (10:56)
[2024-09-22] MEDS ORDERED: glucagon, human recombinant 1mg kit SUBCUT PRN (11:10)
[2024-09-22] MEDS ORDERED: DEXTROSE 15 GM of carb/4 tabs (each vial/BOTTLE has 4 tablets) PO PRN ×2 (11:10)
[2024-09-22] MEDS ORDERED: dextrose 50%-water 50ml dispensing syringe IV PRN (11:10)
[2024-09-22] MEDS: dextrose 50%-water 50ml dispensing syringe IV PRN (11:14)
[2024-09-22] MEDS: ringers solution, lacted 1,000 ML IV SCH (11:36)
[2024-09-22] MEDS: INSULIN LISPRO 100 UNIT/ML INSULN.PEN MULTI-DOSE SQ SCH (12:00)
[2024-09-22] MEDS: insulin glargine (Lantus) pen - multi-dose SQ SCH (12:24)
[2024-09-22 14:22] LABS: ALBUMIN 2.2 G/DL (3.4-5.0); ANION GAP 6 (8-16); BLOOD UREA NITROGEN 44 MG/DL (7-18); BUN/CREATININE RATIO 19.9 (10.0-20.0); CALCIUM 6.2 MG/DL (8.5-10.1); CHLORIDE 110 MMOL/L (99-107); CREATININE 2.21 MG/DL (0.40-0.90); GLUCOSE 196 MG/DL (70-104); SODIUM 143 MMOL/L (135-145); TOTAL CARBON DIOXIDE 27.5 MMOL/L (24-32); eCRCL 27 ML/MIN; eGFR 25 ML/MIN
[2024-09-22 18:47] LABS: OSMOLALITY 326 MOSM/K (280-300)
[2024-09-22] MEDS ORDERED: mineral oil/petrolatum ophthal oint EACHEYE SCH (20:00)
[2024-09-23] MEDS ORDERED: mineral oil/petrolatum ophthal oint EACHEYE SCH (02:00)
[2024-09-23 04:34] LABS: BASOPHILS % (AUTO) 0.3 % (0-1)
[2024-09-23 04:38] LABS: EOSINOPHILS % (AUTO) 0 % (0-6); HEMATOCRIT 29.8 % (35.0-45.0); HEMOGLOBIN 9.8 g/dl (12.0-16.0); LYMPHOCYTES # (AUTO) 2.2 X10'3 (1.1-4.8); LYMPHOCYTES % (AUTO) 12.3 % (21-51); MEAN CORPUSCULAR HEMOGLOBIN 28.8 PG (27.0-31.0); MEAN CORPUSCULAR HGB CONC 32.9 g/dL (33.0-36.5); MEAN CORPUSCULAR VOLUME 87.5 FL (78-98); MEAN PLATELET VOLUME 7.8 FL (7.4-10.4); MONOCYTES % (AUTO) 5.6 % (2-12); NEUTROPHILS # (AUTO) 14.7 X10'3 (1.8-7.7); NEUTROPHILS % (AUTO) 81.8 % (42-75); PLATELET COUNT 285 X10'3 (140-440); RED BLOOD COUNT 3.41 X10'6 (4.20-5.60); WHITE BLOOD COUNT 17.9 X10'3 (4.5-11.0)
[2024-09-23 04:53] LABS: ALANINE AMINOTRANSFERASE 32 U/L (12-78); ALBUMIN 2.1 G/DL (3.4-5.0); ALBUMIN/GLOBULIN RATIO 0.7 (1.1-1.5); ALKALINE PHOSPHATASE 101 IU/L (46-116); ANION GAP 7 (8-16); ASPARTATE AMINO TRANSFERASE 51 U/L (10-37); BILIRUBIN,TOTAL 0.3 MG/DL (0.1-1.0); BLOOD UREA NITROGEN 39 MG/DL (7-18); BUN/CREATININE RATIO 24.8 (10.0-20.0); CALCIUM 7.3 MG/DL (8.5-10.1); CHLORIDE 116 MMOL/L (99-107); CREATININE 1.57 MG/DL (0.40-0.90); POTASSIUM 3.1 MMOL/L (3.5-5.1); SODIUM 151 MMOL/L (135-145); TOTAL PROTEIN 5.1 G/DL (6.4-8.2); eCRCL 38 ML/MIN; eGFR 36 ML/MIN
[2024-09-23 04:56] LABS: GLUCOSE 41 MG/DL (70-104)
[2024-09-23] MEDS: dextrose 50%-water 50ml dispensing syringe IV PRN (05:06)
[2024-09-23 06:00] VITALS: BP 115/77; PULSE 91; RESP 16; TEMP 97.5; O2SAT 96
[2024-09-23] MEDS: ondansetron/PF 4mg/2ml inj IV PRN (09:34)
[2024-09-23] MEDS: potassium Cl 20 mEq SR tablet PO PRN (09:34)
[2024-09-23] MEDS ORDERED: potassium Cl 20 mEq SR tablet PO PRN ×2 (10:00)
[2024-09-23] MEDS ORDERED: potassium Cl 40MEQ/1/2NS 520ml 520 ML IV PRN (10:00)
[2024-09-23] MEDS ORDERED: magnesium sulf-water 2g/50mL 50 ML IV PRN (10:00)
[2024-09-23] MEDS ORDERED: magnesium sulf-water 4G/100mL 100 ML IV PRN (10:00)
[2024-09-23] MEDS ORDERED: magnesium Cl slow-release 64mg tablet PO PRN (10:00)
[2024-09-23 10:41] LABS: POTASSIUM 3.5 MMOL/L (3.5-5.1)
[2024-09-23 10:50] VITALS: BP 140/88; PULSE 94; RESP 16; TEMP 97.7; O2SAT 99
[2024-09-23] MEDS: sodium chloride 0.45% 1,000 ML IV SCH ×2 (12:04→15:40)
[2024-09-23] MEDS: CefTRIAXone/D5W-Rocephin 1gm 50 ML IV SCH (13:46)
[2024-09-23] MEDS: azithromycin 250mg tablet PO SCH (13:46)
[2024-09-23] MEDS: simethicone 80mg chew tab PO SCH (13:47)
[2024-09-23 13:57] VITALS: RESP 16; O2SAT 99
[2024-09-23] MEDS ORDERED: guaiFENesin/DM/phenylephrine syrup 120ml bottle PO PRN (14:40)
[2024-09-23] MEDS ORDERED: guaiFENesin/DM 10ml UD oral syrup PO PRN (14:49)
[2024-09-23] MEDS ORDERED: dextrose 5%-water 1,000 ML IV SCH (15:35)
[2024-09-23 15:58] LABS: ALBUMIN 2.1 G/DL (3.4-5.0); ANION GAP 5 (8-16); BLOOD UREA NITROGEN 28 MG/DL (7-18); BUN/CREATININE RATIO 24.1 (10.0-20.0); CALCIUM 7.2 MG/DL (8.5-10.1); CHLORIDE 111 MMOL/L (99-107); CREATININE 1.16 MG/DL (0.40-0.90); GLUCOSE 120 MG/DL (70-104); MAGNESIUM 1.8 MG/DL (1.5-2.4); POTASSIUM 3.5 MMOL/L (3.5-5.1); SODIUM 147 MMOL/L (135-145); TOTAL CARBON DIOXIDE 30.8 MMOL/L (24-32); eCRCL 51 ML/MIN; eGFR 52 ML/MIN
[2024-09-23 16:05] LABS: HCG SERUM QL NEGATIVE
[2024-09-23 18:00] VITALS: BP 134/84; PULSE 99; RESP 16; TEMP 98.7; O2SAT 99
[2024-09-23] MEDS: K and/or MAG REPLACEMENT MC SCH (19:20)
[2024-09-23 20:00] VITALS: RESP 16; O2SAT 99
[2024-09-23] MEDS ORDERED: insulin glargine (Lantus) pen - multi-dose SQ SCH (20:00)
[2024-09-23] MEDS: pantoprazole 40 MG vial IV SCH (20:16)
[2024-09-23 22:00] VITALS: BP 149/88; PULSE 108; RESP 17; TEMP 97.5; O2SAT 96
[2024-09-24 06:12] LABS: BASOPHILS % (AUTO) 0.4 % (0-1); EOSINOPHILS % (AUTO) 0.3 % (0-6); HEMATOCRIT 31.3 % (35.0-45.0); HEMOGLOBIN 10.3 g/dl (12.0-16.0); LYMPHOCYTES # (AUTO) 1.4 X10'3 (1.1-4.8); LYMPHOCYTES % (AUTO) 13.9 % (21-51); MEAN CORPUSCULAR HEMOGLOBIN 29.2 PG (27.0-31.0); MEAN CORPUSCULAR HGB CONC 32.9 g/dL (33.0-36.5); MEAN CORPUSCULAR VOLUME 88.9 FL (78-98); MEAN PLATELET VOLUME 7.7 FL (7.4-10.4); MONOCYTES # (AUTO) 0.5 X10'3 (0-0.9); MONOCYTES % (AUTO) 5.2 % (2-12); NEUTROPHILS # (AUTO) 7.9 X10'3 (1.8-7.7); NEUTROPHILS % (AUTO) 80.2 % (42-75); PLATELET COUNT 240 X10'3 (140-440); RED BLOOD COUNT 3.52 X10'6 (4.20-5.60); RED CELL DISTRIBUTION WIDTH 18.1 % (11.5-14.5); WHITE BLOOD COUNT 9.9 X10'3 (4.5-11.0)
[2024-09-24 06:23] LABS: ALANINE AMINOTRANSFERASE 31 U/L (12-78); ALBUMIN 2.1 G/DL (3.4-5.0); ALBUMIN/GLOBULIN RATIO 0.6 (1.1-1.5); ALKALINE PHOSPHATASE 109 IU/L (46-116); ANION GAP 8 (8-16); ASPARTATE AMINO TRANSFERASE 49 U/L (10-37); BILIRUBIN,TOTAL 0.5 MG/DL (0.1-1.0); BLOOD UREA NITROGEN 20 MG/DL (7-18); BUN/CREATININE RATIO 24.1 (10.0-20.0); CALCIUM 7.2 MG/DL (8.5-10.1); CHLORIDE 105 MMOL/L (99-107); CREATININE 0.83 MG/DL (0.40-0.90); GLUCOSE 346 MG/DL (70-104); MAGNESIUM 1.7 MG/DL (1.5-2.4); POTASSIUM 4.2 MMOL/L (3.5-5.1); SODIUM 141 MMOL/L (135-145); TOTAL CARBON DIOXIDE 27.8 MMOL/L (24-32); TOTAL PROTEIN 5.4 G/DL (6.4-8.2); eCRCL 71 ML/MIN; eGFR 76 ML/MIN
[2024-09-24 08:25] VITALS: BP 129/88; PULSE 85; RESP 16; TEMP 97.8; O2SAT 98
[2024-09-24] MEDS: insulin glargine (Lantus) pen - multi-dose SQ ONE (09:20)
[2024-09-24] MEDS: normal saline 1000ml 1,000 ML IV SCH (09:21)
[2024-09-24] MEDS: Chloraseptic (Phenol) Spray 177ml MM PRN (09:32)
[2024-09-24 09:48] LABS: APTT 23 SECONDS (22-32); PROTHROMBIN TIME 9.7 SECONDS (9.0-12.0)
[2024-09-24 09:54] LABS: BILIRUBIN,URINE NEGATIVE (Neg); CLARITY,URINE SLIGHTLY CLOUDY (Clear); COLOR,URINE YELLOW (Yellow); GLUCOSE, URINE >=1000 mg/dl (Neg); KETONES,URINE 15 mg/dl (Neg); LEUKOCYTE ESTERASE ,URINE NEGATIVE (Neg); OCCULT BLOOD,URINE LARGE (Neg); PROTEIN,URINE NEGATIVE (Neg); UROBILINOGEN,URINE 0.2 E.U/dL (0.2-1.0)
[2024-09-24 10:01] LABS: NITRITES, URINE NEGATIVE (Neg); SQUAMOUS EPITHELIAL CELL,UR MODERATE /LPF (FEW); UA COLLECTION TYPE OTHER
[2024-09-24 10:02] LABS: BACTERIA,URINE FEW /HPF (Neg); RBC,URINE TNTC /HPF (0-2); TRANSITIONAL EPI CELLS,URINE FEW /HPF; WBC,URINE 0-4 /HPF (0-4)
[2024-09-24 10:04] LABS: INR 0.9 INR
[2024-09-24] MEDS ORDERED: NPH, human insulin isophane inj. SQ ONE (12:20)
[2024-09-24] MEDS ORDERED: CEFD300C3 PO (12:33)
[2024-09-24] MEDS ORDERED: [UNRECOGNIZED DRUG - OTHER] MM (12:33)
[2024-09-24] MEDS ORDERED: SIME80TA73 PO (12:33)
[2024-09-24] MEDS ORDERED: ROBDML PO (12:33)
[2024-09-24] MEDS ORDERED: AZI25OT PO (12:33)
[2024-09-24] MEDS ORDERED: LACT1CAP65 PO (12:33)
[2024-09-24] MEDS: INSULIN LISPRO 100 UNIT/ML INSULN.PEN MULTI-DOSE SQ ONE (12:49)
[2024-09-24 13:00] VITALS: RESP 16; O2SAT 98
== END 2024-09-24 18:09 | disposition home health service (06) | DRG 420 ==
LOC: ER 17:28 → ED HOLD 18:27 → CICU 2S 09-22 03:52 → ORTHO 4S 09-22 16:35
PROVIDERS: ADMIT Internal Medicine Critical Care Medicine; ATTEND Internal Medicine Critical Care Medicine
PROC: 02HV33Z Insertion of Infusion Device into Superior Vena Cava, Percutaneous Approach (ICD-10-PCS; principal; 2024-09-21)
PROC: 5A1935Z Respiratory Ventilation, Less than 24 Consecutive Hours (ICD-10-PCS; 2024-09-21)
PROC: B548ZZA Ultrasonography of Superior Vena Cava, Guidance (ICD-10-PCS; 2024-09-21)
PROC: 0BH17EZ Insertion of Endotracheal Airway into Trachea, Via Natural or Artificial Opening (ICD-10-PCS; 2024-09-21)
DX: E11.10 Type 2 diabetes mellitus with ketoacidosis without coma (principal); J96.90 Respiratory failure, unspecified, unspecified whether with hypoxia or hypercapnia; N17.0 Acute kidney failure with tubular necrosis; G93.41 Metabolic encephalopathy; E87.0 Hyperosmolality and hypernatremia; E87.6 Hypokalemia; E87.8 Other disorders of electrolyte and fluid balance, not elsewhere classified; F15.11 Other stimulant abuse, in remission; F32.A Depression, unspecified; Z79.4 Long term (current) use of insulin; Z88.0 Allergy status to penicillin; Z56.0 Unemployment, unspecified
CPT/HCPCS: 36415; 36600; 70450; 71045; 71250; 73110; 73130; 74176; 80048; 80053; 80305; 80320; 81001; 82570; 82803; 82947; 82948; 83036; 83605; 83735; 83930; 83935; 84100; 84132; 84133; 84145; 84300; 84540; 84703; 85007; 85018; 85025; 85610; 85730; 87040; 87070; 87081; 87207; 92508; 93306; 94002; 94003; 94760; 94799; 96365; 97116; 97161; 97530; 99291; A6258; A6449; C1751; G0378; J0696; J1644; J1815; J2405; J2470; J2704; J3010; J3480; J3490; J7030; J7040; J7120

== ENCOUNTER 2024-11-04 14:22 | Emergency (ER) | payer MEDICAID, OTHER ==
[~2024-11-04] VITALS: Ht 149.9 cm; Wt 50.0 kg
[~2024-11-04 14:22] MED LIST changes: +AZI25OT PO; +LACT1CAP65 PO; +ROBDML PO; +SIME80TA73 PO; +[UNRECOGNIZED DRUG - OTHER] MM; -etomidate 2mg/ml inj. ONE
[2024-11-04 14:32] VITALS: BP 145/106; PULSE 107; RESP 18; TEMP 97.8; O2SAT 100
== END 2024-11-04 15:08 | disposition home or self-care (01) ==
LOC: ER 14:23
DX: Z00.00 Encounter for general adult medical examination without abnormal findings (principal); M54.30 Sciatica, unspecified side; E10.9 Type 1 diabetes mellitus without complications; F32.A Depression, unspecified; F12.90 Cannabis use, unspecified, uncomplicated; Z88.0 Allergy status to penicillin; Z79.4 Long term (current) use of insulin; V43.52XA Car driver injured in collision with other type car in traffic accident, initial encounter; Y93.89 Activity, other specified; Y92.410 Unspecified street and highway as the place of occurrence of the external cause; Y99.8 Other external cause status
CPT/HCPCS: 99283

== ENCOUNTER 2024-11-27 10:03 | Emergency (ER) | payer OTHER ==
[~2024-11-27] VITALS: Ht 149.9 cm; Wt 53.0 kg
[2024-11-27 10:23] VITALS: TEMP 97.8
[2024-11-27] MEDS ORDERED: ketorolac trometh 15mg/ml vial 15 MG/ML ML IM ONE (11:55)
[2024-11-27 12:25] LABS: BILIRUBIN,URINE NEGATIVE (Neg); CLARITY,URINE CLEAR (Clear); COLOR,URINE YELLOW (Yellow); GLUCOSE, URINE >=1000 mg/dl (Neg); KETONES,URINE NEGATIVE (Neg); LEUKOCYTE ESTERASE ,URINE NEGATIVE (Neg); NITRITES, URINE NEGATIVE (Neg); OCCULT BLOOD,URINE NEGATIVE (Neg); PROTEIN,URINE NEGATIVE (Neg); UROBILINOGEN,URINE 0.2 E.U/dL (0.2-1.0)
[2024-11-27 12:29] LABS: URINE HCG NEGATIVE (NEG)
[2024-11-27 12:44] LABS: BASOPHILS # (AUTO) 0.1 X10'3 (0-0.2); BASOPHILS % (AUTO) 1.2 % (0-1); EOSINOPHILS # (AUTO) 0.4 X10'3 (0-0.9); EOSINOPHILS % (AUTO) 5.1 % (0-6); HEMOGLOBIN 11.9 g/dl (12.0-16.0); LYMPHOCYTES # (AUTO) 2.5 X10'3 (1.1-4.8); LYMPHOCYTES % (AUTO) 29.6 % (21-51); MEAN CORPUSCULAR HGB CONC 33.1 g/dL (33.0-36.5); MEAN CORPUSCULAR VOLUME 90.7 FL (78-98); MONOCYTES # (AUTO) 0.5 X10'3 (0-0.9); MONOCYTES % (AUTO) 5.4 % (2-12); NEUTROPHILS % (AUTO) 58.7 % (42-75); PLATELET COUNT 419 X10'3 (140-440); RED BLOOD COUNT 3.97 X10'6 (4.20-5.60); WHITE BLOOD COUNT 8.6 X10'3 (4.5-11.0)
[2024-11-27] MEDS: ketorolac trometh 30MG/ML vial 30 MG/ML VIAL IM ONE (12:48)
[2024-11-27] MEDS: insulin regular, human 10 units/0.1 ml syringe SQ ONE (12:49)
[2024-11-27 12:53] VITALS: BP 125/93; PULSE 81; RESP 16; O2SAT 99
[2024-11-27 12:54] LABS: UA COLLECTION TYPE NON-SPECIFIED
[2024-11-27 12:55] LABS: RBC,URINE NONE SEEN /HPF (0-2)
[2024-11-27 12:56] LABS: BACTERIA,URINE FEW /HPF (Neg); MUCUS STRANDS NONE SEEN /LPF (Neg); SQUAMOUS EPITHELIAL CELL,UR MODERATE /LPF (FEW); WBC,URINE 0-4 /HPF (0-4)
[2024-11-27 13:15] LABS: ALANINE AMINOTRANSFERASE 248 U/L (12-78); ALBUMIN 3.6 G/DL (3.4-5.0); ALBUMIN/GLOBULIN RATIO 0.9 (1.1-1.5); ALKALINE PHOSPHATASE 256 IU/L (46-116); ANION GAP 10 (8-16); ASPARTATE AMINO TRANSFERASE 36 U/L (10-37); BILIRUBIN,TOTAL 0.3 MG/DL (0.1-1.0); BLOOD UREA NITROGEN 14 MG/DL (7-18); BUN/CREATININE RATIO 26.9 (10.0-20.0); CHLORIDE 97 MMOL/L (99-107); CREATININE 0.52 MG/DL (0.40-0.90); LIPASE 107 U/L (16-77); POTASSIUM 4.4 MMOL/L (3.5-5.1); SODIUM 131 MMOL/L (135-145); TOTAL CARBON DIOXIDE 24.1 MMOL/L (24-32); TOTAL PROTEIN 7.6 G/DL (6.4-8.2); eCRCL 98 ML/MIN; eGFR > 90 ML/MIN
[2024-11-27 13:26] LABS: GLUCOSE 511 MG/DL (70-104)
== END 2024-11-27 14:02 | disposition home or self-care (01) ==
LOC: ER 10:04
DX: M54.59 Other low back pain (principal); E11.65 Type 2 diabetes mellitus with hyperglycemia; F12.90 Cannabis use, unspecified, uncomplicated; F10.90 Alcohol use, unspecified, uncomplicated; F32.A Depression, unspecified; Z88.0 Allergy status to penicillin; Z79.899 Other long term (current) drug therapy; Z56.0 Unemployment, unspecified; Y90.9 Presence of alcohol in blood, level not specified
CPT/HCPCS: 36415; 72040; 72100; 80053; 81001; 81025; 82948; 83690; 85025; 96372; 99284; J1815; J1885

== ENCOUNTER 2025-02-13 10:33 | Emergency (ER) | payer MEDICAID, OTHER ==
[~2025-02-13] VITALS: Ht 149.9 cm; Wt 49.7 kg
[2025-02-13 11:00] LABS: BASOPHILS # (AUTO) 0.1 X10'3 (0-0.2); BASOPHILS % (AUTO) 1.2 % (0-1); EOSINOPHILS # (AUTO) 0.5 X10'3 (0-0.9); EOSINOPHILS % (AUTO) 7.5 % (0-6); HEMATOCRIT 38.7 % (35.0-45.0); HEMOGLOBIN 12.9 g/dl (12.0-16.0); LYMPHOCYTES # (AUTO) 1.9 X10'3 (1.1-4.8); LYMPHOCYTES % (AUTO) 26.8 % (21-51); MEAN CORPUSCULAR HEMOGLOBIN 29.9 PG (27.0-31.0); MEAN CORPUSCULAR HGB CONC 33.2 g/dL (33.0-36.5); MEAN PLATELET VOLUME 7.5 FL (7.4-10.4); MONOCYTES # (AUTO) 0.5 X10'3 (0-0.9); MONOCYTES % (AUTO) 6.7 % (2-12); NEUTROPHILS % (AUTO) 57.8 % (42-75); PLATELET COUNT 421 X10'3 (140-440); RED BLOOD COUNT 4.31 X10'6 (4.20-5.60); WHITE BLOOD COUNT 6.9 X10'3 (4.5-11.0)
[2025-02-13 11:28] LABS: ALANINE AMINOTRANSFERASE 154 U/L (12-78); ALBUMIN 3.5 G/DL (3.4-5.0); ALBUMIN/GLOBULIN RATIO 0.9 (1.1-1.5); ALKALINE PHOSPHATASE 204 IU/L (46-116); ANION GAP 6 (8-16); ASPARTATE AMINO TRANSFERASE 143 U/L (10-37); BILIRUBIN,TOTAL 0.7 MG/DL (0.1-1.0); BLOOD UREA NITROGEN 25 MG/DL (7-18); BUN/CREATININE RATIO 43.9 (10.0-20.0); CALCIUM 8.9 MG/DL (8.5-10.1); CHLORIDE 102 MMOL/L (99-107); CREATININE 0.57 MG/DL (0.40-0.90); GLUCOSE 193 MG/DL (70-104); LIPASE 28 U/L (16-77); POTASSIUM 3.6 MMOL/L (3.5-5.1); SODIUM 142 MMOL/L (135-145); TOTAL CARBON DIOXIDE 34.2 MMOL/L (24-32); TOTAL PROTEIN 7.2 G/DL (6.4-8.2); eCRCL 89 ML/MIN; eGFR > 90 ML/MIN
[2025-02-13] MEDS: proCHLORperazine 10 MG/2 ml inj IV STA (12:06)
[2025-02-13] MEDS: normal saline 1000ml 1,000 ML IV STA (12:06)
[2025-02-13 13:41] LABS: ETHANOL < 10 MG/DL (<10)
[2025-02-13] MEDS ORDERED: iohexol 300mg/ml 100ml inj. ONE (13:44)
[2025-02-13 13:46] LABS: BILIRUBIN,URINE NEGATIVE (Neg); CLARITY,URINE SLIGHTLY CLOUDY (Clear); COLOR,URINE YELLOW (Yellow); GLUCOSE, URINE >=1000 mg/dl (Neg); KETONES,URINE NEGATIVE (Neg); LEUKOCYTE ESTERASE ,URINE SMALL (Neg); NITRITES, URINE NEGATIVE (Neg); OCCULT BLOOD,URINE NEGATIVE (Neg); PROTEIN,URINE TRACE mg/dl (Neg); UROBILINOGEN,URINE 0.2 E.U/dL (0.2-1.0)
[2025-02-13 13:47] LABS: UA COLLECTION TYPE NON-SPECIFIED
[2025-02-13 13:50] LABS: URINE HCG NEGATIVE (NEG)
[2025-02-13 13:55] LABS: BACTERIA,URINE 4+ /HPF (Neg); MUCUS STRANDS NONE SEEN /LPF (Neg); RBC,URINE NONE SEEN /HPF (0-2); SQUAMOUS EPITHELIAL CELL,UR MODERATE /LPF (FEW); WBC CLUMPS,URINE MODERATE /HPF (NEGATIVE); WBC,URINE 50-100 /HPF (0-4)
[2025-02-13 14:05] LABS: URINE AMPHETAMINE SCREEN POSITIVE (Neg); URINE BARBITUATE SCREEN NEGATIVE (Neg); URINE BENZODIAZEPINES SCREEN NEGATIVE (Neg); URINE CANNABINOID SCREEN POSITIVE (Neg); URINE COCAINE SCREEN NEGATIVE (Neg); URINE METHADONE SCREEN NEGATIVE (Neg); URINE OPIATE SCREEN NEGATIVE (Neg); URINE PHENCYCLIDINE SCREEN NEGATIVE (Neg)
[2025-02-13] MEDS ORDERED: CEFD300C3 PO (16:31)
[2025-02-13] MEDS ORDERED: PANT-47 PO (16:31)
[2025-02-13] MEDS: CefTRIAXone 1000mg IM Kit (w/lidocaine diluent) IM STA (16:39)
[2025-02-13] MEDS: CefTRIAXone/D5W-Rocephin 1gm 50 ML IV ONE (16:53)
[2025-02-13] MEDS: mag hydrox/Alum hydrox/simeth 30ml oral suspension PO STA (16:53)
[2025-02-13 17:59] VITALS: BP 128/91; PULSE 88; RESP 15; TEMP 98; O2SAT 99
== END 2025-02-13 18:19 | disposition home or self-care (01) ==
LOC: ER 10:33
DX: K29.00 Acute gastritis without bleeding (principal); N39.0 Urinary tract infection, site not specified; E11.9 Type 2 diabetes mellitus without complications; F12.90 Cannabis use, unspecified, uncomplicated; Z88.0 Allergy status to penicillin; Z88.1 Allergy status to other antibiotic agents
CPT/HCPCS: 36415; 74177; 80053; 80305; 80320; 81001; 81025; 83605; 83690; 84145; 85025; 87088; 96365; 96375; 99285; J0696; J0780; J7030; Q9967; 87077; 87186

== ENCOUNTER 2025-04-29 13:04 | Emergency (ER) | payer MEDICAID ==
[~2025-04-29] VITALS: Ht 157.5 cm; Wt 52.3 kg
[~2025-04-29 13:04] MED LIST changes: +PANT-47 PO
[2025-04-29 13:06] VITALS: TEMP 98.7
--- NOTE | 2025-04-29 13:08 | ELECTROCARDIOGRAPH REPORT ---
[facility] Test Date: 2025-04-29 Test Time: 13:06:11 Pat Name: JESSY RODRIGUEZ Department: EMERGENCY ROOM Patient ID: 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 Pradeep Randall Measurements Intervals [place] Rate: 99 P: 76 VT: 128 QRS: 56 QRSD: 83 T: 63 QT: 367 QTc: 471 Interpretive Statements Sinus rhythm Biatrial enlargement Probable left ventricular hypertrophy ST elev, probable normal early repol pattern Electronically Signed On 04-30-2025 10:24:[address] Pradeep Randall Please click the below link to view image of tracing.
--- NOTE | 2025-04-29 13:20 | Physician Documentation ---
History of Present Illness ~ General Chief Complaint: Diabetic Complication Stated Complaint: HYPERGLYCEMIA Time Seen by MD: 13:06 Primary Medical Doctor: [facility] History of Present Illness Initial Comments This is a 40-year-old female with a known history of type 1 diabetes mellitus who presents for evaluation of feeling poorly, weak, reporting diffuse abdominal pain and diarrhea for the last two days, nausea or vomiting today. The blood sugar has been reading high all day. She has a attempted to treat it with 14 units of insulin without any success whatsoever. She states that she has been here for DKA 3 times this year. No particular palliating or aggravating factors. She does report sensation of acid like chest pain. Denies any concerns for tobacco, alcohol or illicit substances use Medication Reconciliation Allergies: Coded Allergies: Penicillins (Verified Allergy, Severe, THROAT SWELLING, 02/13/25) benzocaine (Unverified Allergy, Unknown, 04/29/25) Scheduled Azithromycin (Zithromax), 500 MG PO DAILY Insulin Glargine,Hum.rec.anlog (Basaglar Kwikpen U-100), 10 UNITS SQ BID, (Reported) Lactobacillus Acidophilus (Probiotic), 1 CAP PO DAILY ONDANSETRON ODT 4mg tablet (Ondansetron Odt), 8 MG PO BID Pantoprazole Sodium (PROTONIX tablet), 1 TAB PO DAILY Simethicone (Gas Relief 80), 80 MG PO TID Scheduled PRN Guaifenesin/D-Methorphan Hb (Robitussin Dm), 10 ML PO Q4H PRN for cough Insulin Lispro (Admelog Solostar), 1 UNIT SQ TIDWM PRN for SLIDING SCALE, (Reported) [phenol throat spray], 2 SPRAY MM Q4H PRN for sore throat Past Medical History Past Medical History: Pancreatitis, Diabetes, Depression Past Surgical History: noncontributory Patient History: Patient reports no known family medical history. Other Past Family History: NONCONTRIBUTORY Alcohol Use: Heavy Drug Use: marijuana Lives with: Family Lives In: Home Occupation: unemployed Review of Systems ROS 10 point review of systems was performed and unless noted above in HPI is negative for acute process/complaint. Physical Exam Physical Exam Vital Signs: Temperature: 98.7, Source: Oral, Heart Rate: 99, Respiratory Rate: 24, BP: 141/88, Pulse Oximetry: 100, Weight: 52.270 Oxygen Flow Rate: 0 Physical Exam GENERAL: Awake, alert, oriented, GCS 15, no apparent distress, non-toxic appearing, answers questions, follows commands appropriately. Examined immediately upon arrival in bed 15. HEENT: Atraumatic, normocephalic, pupils equal, extraocular muscles intact, sclerae anicteric, mucus membranes very dry, oropharynx is clear, no stridor. NECK: supple, full active range of motion, trachea midline, no thyromegaly, no lymphadenopathy, no JVD. CARDIOVASCULAR: regular rate/rhythm, no murmurs/gallops/rubs, Pulses are 2+ in all extremities and symmetric. Capillary refill less than 2 seconds. PULMONARY: Tachypneic, borderline Kussmaul respirations, good air movement ,no respiratory distress, speaking in full sentences, clear to auscultation bilaterally, no wheezing, no ronchi, no rales, no accessory muscle use. GASTROINTESTINAL: Soft, non-tender, non-distended, normal active bowel sounds, no organomegaly, no pulsatile masses, no CVA tenderness. NEUROLOGIC: Lucid with normal mental status. Normal facial symmetry. Moves all extremities symmetrically and with purpose. No truncal ataxia. Speech is fluid without evidence of dysarthria or aphasia, no focal deficits appreciated. MUSCULOSKELETAL: There is full range of motion of all extremities. There is no joint pain or joint swelling or joint erythema. There is no muscle pain or tenderness or swelling. EXTREMITIES: warm, well-perfused, no cyanosis, no clubbing, no edema, no acute deformities. Skin: warm, dry, no rashes or lesions, no jaundice, no petechiae orpurpura. No ecchymosis. PSYCHIATRIC: Normal affect, normal insight, normal concentration. Focused exam: [] Progress Results/Orders Results/Orders Orders - PUMA BETANCUR DO Urinalysis, Cult If Indicated (04/29/25 13:06) Hcg, Ur Ql (04/29/25 13:06) Ketones,Urine (04/29/25 13:08) Mixed Venous (04/29/25 ) Hcg Serum Ql (04/29/25 13:08) Electrocardiogram (04/29/25 ) Completed Orders - PUMA BETANCUR DO Cbc/Diff (04/29/25 13:06) BMP (04/29/25 13:06) Lipase (04/29/25 13:06) CMP (04/29/25 13:06) Electrocardiogram (04/29/25 13:06) Hs Troponin I W Calculations (04/29/25 13:08) Vital Signs 04/29/25 04/29/25 04/29/25 13:06 13:14 13:55 Temp 98.7 Pulse 99 89 Resp 24 24 17 B/P (MAP) 141/88 131/86 (101) Pulse Ox 100 100 O2 Flow Rate 0 0 Laboratory Tests Test 04/29/25 13:13 04/29/25 13:27 04/29/25 13:58 Glucometer 594 *H White Blood Count 10.5 Red Blood Count 3.58 L Hemoglobin 10.5 L Hematocrit 32.2 L Mean Corpuscular Volume 90.0 Mean Corpuscular Hemoglobin 29.4 Mean Corpuscular Hemoglobin Concent 32.6 L Red Cell Distribution Width 14.8 H Platelet Count 669 H Mean Platelet Volume 7.3 L Neutrophils (%) (Auto) 67.4 Lymphocytes (%) (Auto) 20.4 L Monocytes (%) (Auto) 9.8 Eosinophils (%) (Auto) 1.4 Basophils (%) (Auto) 1.0 Neutrophils # (Auto) 7.1 Lymphocytes # (Auto) 2.1 Monocytes # (Auto) 1.0 H Eosinophils # (Auto) 0.1 Basophils # (Auto) 0.1 CBC Comment Sodium Level 134 L Potassium Level 3.2 L Chloride Level 93 L Carbon Dioxide Level 13.6 *L Anion Gap 27 H Blood Urea Nitrogen 19 H Creatinine 1.47 H Estimated GFR/1.73 m2 39 BUN/Creatinine Ratio 12.9 Glucose Level 589 *H Calcium Level 9.3 Total Bilirubin 0.7 Aspartate Amino Transf (AST/SGOT) 22 Alanine Aminotransferase (ALT/SGPT) 63 Alkaline Phosphatase 178 H Troponin I High Sensitivity 4 Total Protein 7.4 Albumin 3.5 Globulin 3.9 Albumin/Globulin Ratio 0.9 L Lipase 36 Chemistry Comments Venous Blood pH 7.296 L Medical Decision Making Findings Facility Status: ED Holds, E process The plan was discussed with the patient, who demonstrates clear understanding of the plan and is in agreement with the plan unless otherwise noted in the chart. All questions have been answered, all concerns were addressed unless otherwise documented. I was available throughout their ED stay for frequent reassessment and questions. Differential Diagnoses (considered and possible or likely): [] ??Differential Diagnoses (considered and unlikely, not requiring evaluation currently): [] MDM Data Please see [facility] for the following: Independent Historians and external Records Review. Historian: [Patient] Independent Historians: ?[Record review] Medication Management: [Reviewed medication list] Social History and determinants: [Reviewed] Please see the body of the note for the following: Any independent interpretations of ECG, imaging studies. All vitals signs/haemodynamics, ordered tests were independently reviewed and interpreted by myself. Nursing triage complaint and vitals reviewed, additional nursing notes were reviewed as available and I agree unless otherwise noted or documented in contradiction in the chart Vital Signs: Independently reviewed Labs: Independently interpreted Imaging: Independently interpreted Old Medical Records: Independently reviewed, see [facility] for relevant summary and information Pulse Oximetry: [99%] interpreted as [normal on room air] by me [Auction Assistant: [Regular Rate, Regular rhythm, no ectopy, NSR] reviewed and interpreted by me] Additionally notably showing: [Hemodynamically stable. Laboratory workup consistent with diabetic ketoacidosis.] Tests considered but not ordered include: [Not applicable] Social Determinants of Health Impact: Patient was evaluated in [facility], or [facility] [place] to healthcare due to below par ratio of patient to medical providers. [] Comorbid Conditions Impacting Present Evaluation and Care/Treatment: [Diabetes] Management Discussions with other Healthcare Providers: [Not applicable] Treatment and Disposition Medication Management (Given or considered): [Insulin drip has been considerably the patient abscond it]. See EMR for details Consideration for Hospitalization/Escalation/Deescalation of Care: Admission for observation has been considered, [however the patient is able to tolerate p.o., their symptoms are controlled, they are able to rely on oral medications, and their chief complaint/diagnosis can be managed on outpatient basis.] ?ED Course:?[Unfortunately the patient decided to leave against medical advice. She has a medical decision-making capacity. She understands the risks of permanent disability and .] I was notified the the patient left with the IV in place. Police was notified, appropriate protocol was followed. Code status:?FULL Please see the full Electronic Medical Record for full details of nursing documentation, medications list, other records of complete past medical history and conditions, vital signs, laboratory studies, and any radiologic study interpretations by radiologists. Portions of this note were completed using [employer] dictation software and as a result there may exist minor errors in spelling. I have reviewed elements of past family and social history and agree as included in note. Was Departure Disposition: 07 LEFT AWOL/ELOPED (Age with a call walking) Impression: Primary Impression: Diabetic ketoacidosis Referrals: NO PRIMARY CARE PROVIDER (PCP) Critical Care Note Critical Care Note CRITICAL CARE TIME: [35 ] minutes Treatments/Evaluations: Close monitoring and treatment of unstable vital signs, cardiorespiratory, and neurologic status, while maintaining tight balance of fluid, respiratory, and cardiac interventions. This time includes discussing the case with the patient and the patients family. This time does not include all procedures stated elsewhere in this record. This time also includes reviewing old records, labs and radiological studies. This time includes examining and re- examining the patient. Additionally, this time also includes arranging care with admitting and consulting physicians. Signature Scribe Signature: No scribe Attestation: This note accurately reflects clinical decisions, work performed by myself, Puma Betancur, PUMA HICKS DO Apr 29, 2025 13:20
[2025-04-29 13:39] LABS: BASOPHILS # (AUTO) 0.1 X10'3 (0-0.2); LYMPHOCYTES # (AUTO) 2.1 X10'3 (1.1-4.8); MONOCYTES % (AUTO) 9.8 % (2-12)
[2025-04-29 13:41] LABS: EOSINOPHILS # (AUTO) 0.1 X10'3 (0-0.9); EOSINOPHILS % (AUTO) 1.4 % (0-6); HEMATOCRIT 32.2 % (35.0-45.0); HEMOGLOBIN 10.5 g/dl (12.0-16.0); LYMPHOCYTES % (AUTO) 20.4 % (21-51); MEAN CORPUSCULAR HEMOGLOBIN 29.4 PG (27.0-31.0); MEAN CORPUSCULAR HGB CONC 32.6 g/dL (33.0-36.5); MEAN PLATELET VOLUME 7.3 FL (7.4-10.4); NEUTROPHILS # (AUTO) 7.1 X10'3 (1.8-7.7); NEUTROPHILS % (AUTO) 67.4 % (42-75); PLATELET COUNT 669 X10'3 (140-440); RED BLOOD COUNT 3.58 X10'6 (4.20-5.60); RED CELL DISTRIBUTION WIDTH 14.8 % (11.5-14.5); WHITE BLOOD COUNT 10.5 X10'3 (4.5-11.0)
[2025-04-29 13:55] VITALS: BP 131/86; PULSE 89; RESP 17; O2SAT 100
[2025-04-29 14:00] LABS: ALANINE AMINOTRANSFERASE 63 U/L (12-78); ALBUMIN 3.5 G/DL (3.4-5.0); ALBUMIN/GLOBULIN RATIO 0.9 (1.1-1.5); ALKALINE PHOSPHATASE 178 IU/L (46-116); ANION GAP 27 (8-16); ASPARTATE AMINO TRANSFERASE 22 U/L (10-37); BILIRUBIN,TOTAL 0.7 MG/DL (0.1-1.0); BLOOD UREA NITROGEN 19 MG/DL (7-18); BUN/CREATININE RATIO 12.9 (10.0-20.0); CALCIUM 9.3 MG/DL (8.5-10.1); CHLORIDE 93 MMOL/L (99-107); CREATININE 1.47 MG/DL (0.40-0.90); LIPASE 36 U/L (16-77); POTASSIUM 3.2 MMOL/L (3.5-5.1); SODIUM 134 MMOL/L (135-145); TOTAL PROTEIN 7.4 G/DL (6.4-8.2); eCRCL 40 ML/MIN; eGFR 39 ML/MIN
[2025-04-29 14:02] LABS: GLUCOSE 589 MG/DL (70-104); TOTAL CARBON DIOXIDE 13.6 MMOL/L (24-32)
[2025-04-29 14:24] LABS: HCG SERUM QL NEGATIVE
== END 2025-04-29 14:10 | disposition left against medical advice (07) ==
LOC: ER 13:05
DX: E10.10 Type 1 diabetes mellitus with ketoacidosis without coma (principal); F32.A Depression, unspecified; F12.90 Cannabis use, unspecified, uncomplicated; Z79.4 Long term (current) use of insulin; Z88.0 Allergy status to penicillin; Z79.899 Other long term (current) drug therapy; Z56.0 Unemployment, unspecified
CPT/HCPCS: 80053; 82800; 82948; 83690; 84484; 84703; 85025; 93005; 99284; 99291